=== PATIENT | female | born 1930 | race Caucasian/White ===

== ENCOUNTER 2016-06-13 20:30 | Inpatient (IN) | payer MEDICARE ==
[~2016-06-13] VITALS: Ht 165.1 cm; Wt 51.8 kg
[~2016-06-13 20:30] MED LIST: AMIO200T2 PO; ASPI-664 PO; CARV12.579 PO; FURO-110 PO; LACT1TAB10 PO; LEVE-5 PO; LEVO200T45 PO; MELA3TAB17 PO; OMEP20CA16 PO; PHEN125O2 PO; RALO60TA12 PO; [UNRECOGNIZED DRUG - CODE] IM
[2016-06-13] MEDS ORDERED: LEVETIRACETAM IV 1,000 MG in SOD CHLORIDE 0.9% 100 ML IVPB STA (22:43)
[2016-06-13] MEDS ORDERED: SOD CHLORIDE 0.9% 1,000 ML IV STA (22:43)
[2016-06-13 23:19] LABS: BASOPHIL # 0.1 10^3/ul (0.0-0.1); BASOPHILS % 1.3 % (0.0-2.0); EOSINOPHILS # 0.2 10^3/ul (0.0-0.5); EOSINOPHILS % 2.4 % (0.0-7.0); HEMATOCRIT 38.2 % (37.0-47.0); HEMOGLOBIN 12.6 g/dl (12.0-16.0); LYMPHOCYTES # 2.4 10^3/ul (0.8-2.9); LYMPHOCYTES % 27.4 % (15.0-51.0); MEAN CORPUSCULAR HEMOGLOBIN 29.8 pg (29.0-33.0); MEAN CORPUSCULAR HGB CONC 32.9 g/dl (32.0-37.0); MEAN CORPUSCULAR VOLUME 90.7 fl (82.0-101.0); MEAN PLATELET VOLUME 10.7 fl (7.4-10.4); MONOCYTE # 0.6 10^3/ul (0.3-0.9); MONOCYTES % 6.5 % (0.0-11.0); NEUTROPHIL # 5.4 10^3/ul (1.6-7.5); NEUTROPHILS % 62.4 % (39.0-77.0); PLATELET COUNT 220 10^3/UL (140-440); RED BLOOD COUNT 4.21 10^6/ul (4.20-5.40); RED CELL DISTRIBUTION WIDTH 15.4 % (11.5-14.5); UNCORRECTED WBC 8.7 10^3/ul (4.8-10.8); WHITE BLOOD COUNT 8.7 10^3/ul (4.8-10.8)
[2016-06-13 23:24] LABS: CONDITION 1; LH ANALYZER COMMENTS 1
[2016-06-13 23:27] LABS: CREATININE 1.2 mg/dl (0.44-1.00); INR 1.21; PROTIME 15.4 Sec (12.2-14.2); PT RATIO 1.2
[2016-06-13 23:28] LABS: CALCIUM 9.1 mg/dl (8.4-10.2)
[2016-06-13 23:34] LABS: POTASSIUM 5.5 mmol/L (3.5-5.1)
--- NOTE | 2016-06-14 00:06 | RADRPT ---
PROCEDURE: CT Head without. CLINICAL INDICATION: Seizure. TECHNIQUE: The study was performed utilizing a multi-slice, multidetector CT scanner. Direct spira l 1 mm axial sections were obtained through the head without the use of intravenous contrast materia l. 1 or more of the following dose reduction techniques were utilized: Automated exposure control, adjustment of the mA and/or kV according to patient's size, iterative reconstruction technique. Co tereza and sagittal reformations were obtained. The images were reviewed on a PACS workstation. RADIATION DOSE: CTDIvol: 45.0 mGyDLP: 1440.5 mGy-cm COMPARISON: 03/05/2014, 09/21/2013, 04/25/2013 FINDINGS: There is redemonstration of postoperative changes from right parietal / occipital craniotomy with pl ate and screw device fixation. There is redemonstration of large left parasagittal meningioma along the falx, measuring 4.0 x 3.4 x 4.1 cm (AP x TR x CC), stable compared to the prior examination. T here is stable appearance of encephalomalacia involving the paramedian right parietal / occipital lo bes, likely related to mass effect from the large meningioma status post resection. This is stable compared to the prior examination. There is mild prominence of the cerebral sulci, lateral and thir d ventricles. There is moderate patchy and confluent periventricular and subcortical white matter l esions, likely related to chronic microangiopathic changes. There is mild atherosclerotic calcifica tion of the parasellar internal carotid arteries. The midline structures are intact. 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 The orbits and extracranial soft tissues are normal in appearance. The visualized paranasal sinuses, mastoid air cells and middle ear cavities are normally aerated. IMPRESSION: 1. No significant interval change compared to 03/05/2014. Redemonstration of prominent parasagittal meningioma overlying the left parietal and occipital lobe. 2. Redemonstration of postoperative changes from right parietal / occipital craniotomy with plate a nd screw device fixation. There has been debulking of the parasagittal right aspect of the meningio ma, with encephalomalacia involving the paramedian right parietal and occipital lobe and stable vaso genic edema in the white matter. The mass is stable in size compared to the prior examination. 3. No intracranial hemorrhage, extra-axial fluid collection, mass lesion or hydrocephalous. RPTAT: HGAS .Ayden Yoder MD, Date Time Electronically viewed and signed by .Ayden Yoder MD, on 06/14/2016 00:05 .S/
[2016-06-14] MEDS ORDERED: ONDANSETRON 4 MG INJ IV PRN (01:00)
[2016-06-14] MEDS ORDERED: ACETAMINOPHEN 325 MG TAB PO PRN (01:00)
[2016-06-14] MEDS ORDERED: NA POLYST SULFON 15 GM/60 ML BTL PO ONE (01:00)
--- NOTE | 2016-06-14 01:38 | ERA ---
ER Documentation Chief Complaint Date/Time DATE: 06/14/16 TIME: 01:29 Chief Complaint seizure episode since 1 hour ago. hx-seizure HPI This 86-year-old female was sent to the ER for breakthrough seizures on medication. I spoke with Dr. Rojas and prior to the patient coming to the emergency room about her. He stated that she has meningioma and was controlled on her seizure medicine but now has began having increasing seizures and had a seizure earlier tonight as well. States that it was generalized tonic -clonic. Patient is taking Keppra and Dilantin for seizures currently. Patient was somewhat postictal or somnolent on arrival, though she was alert and oriented 3. She states that she has been having increasing seizures denies any headache currently. States that she was feeling okay. She has no focal weaknesses. ROS All systems reviewed and are negative except as per history of present illness. Medications Home Meds Reported Medications Lactobacillus Cmb#7/Fos/Inulin (PROBIOTIC COMPLEX TABLET) 1 Each Tablet, 1 EACH PO DAILY, TAB 04/11/16 Cyanocobalamin* (Vitamin B12*) 1,000 Mcg/Ml Soln, 1000 MCG IM DAILY, VIAL 04/11/16 Melatonin (Melatonin) 3 Mg Tablet.sa, 3 MG PO HS, TAB.SA 04/11/16 Aspirin* (Aspirin* EC) 81 Mg Tablet.dr, 81 MG PO DAILY, TAB 04/11/16 Carvedilol* (Carvedilol*) 12.5 Mg Tablet, 6.5 MG PO BID, #60 TAB 04/11/16 Levetiracetam* (Keppra*) 500 Mg Tablet, 1000 MG PO BID, TAB 01/16/16 Phenytoin* (Phenytoin*) 125 Mg/5 Ml Oral.susp, 75 MG PO TID for 30 Days, BOTTLE 01/16/16 Omeprazole* (Omeprazole*) 20 Mg Capsule.dr, 20 MG PO BID, #60 CAP 01/16/16 Levothyroxine Sodium* (Levoxyl*) 200 Mcg Tablet, 200 MCG PO BEFORE BREAKFAST, # 30 TAB 01/16/16 Amiodarone Hcl* (Amiodarone Hcl*) 200 Mg Tablet, 200 MG PO BID, #60 TAB 05/10/15 Raloxifene Hcl* (Evista*) 60 Mg Tablet, 60 MG PO DAILY, TAB 05/10/15 Furosemide* (Lasix*) 20 Mg Tablet, 20 MG PO DAILY, TAB 03/05/14 Allergies Allergies: Coded Allergies: No Known Drug Allergies (Verified Allergy, Mild, 06/13/16) PMhx/Soc History of Surgery: Yes (see notes) Anesthesia Reaction: No Hx Neurological Disorder: Yes (SEIZURE DISORDER) Hx Respiratory Disorders: Yes (COPD) Hx Cardiac Disorders: Yes (CAD,HTN, PT HAS AICD) Hx Psychiatric Problems: No Hx Miscellaneous Medical Probl: No Hx Alcohol Use: No Hx Substance Use: No Hx Tobacco Use: No Smoking Status: Never smoker Physical Exam Vitals Vital Signs Date Time Temp Pulse Resp B/P Pulse Ox O2 Delivery O2 Flow Rate FiO2 06/13/16 20:33 97.3 90 20 135/63 96 Physical Exam Const: [] Head: Atraumatic Eyes: Normal Conjunctiva ENT: Normal External Ears, Nose and Mouth. Neck: Full range of motion..~ No meningismus. Resp: Clear to auscultation bilaterally Cardio: Regular rate and rhythm, no murmurs Abd: Soft, non tender, non distended. Normal bowel sounds Skin: No petechiae or rashes Back: No midline or flank tenderness Ext: No cyanosis, or edema Neur: Awake and alert Psych: Normal Mood and Affect Result Diagram: 06/13/161 06/13/162300 Results 24 hrs Laboratory Tests Test 06/13/16 23:01 06/13/16 23:38 Activated Partial Thromboplast Time 41.0Sec Anion Gap 18 Basophils # 0.110^3/ul Basophils % 1.3% Blood Morphology Comment Blood Urea Nitrogen 27mg/dl Calcium Level 9.1mg/dl Carbon Dioxide Level 27mmol/L Chloride Level 101mmol/L Creatinine 1.20mg/dl Eosinophils # 0.210^3/ul Eosinophils % 2.4% Glucose Level 96mg/dl Hematocrit 38.2% Hemoglobin 12.6g/dl INR International Normalized Ratio 1.21 Lymphocytes # 2.410^3/ul Lymphocytes % 27.4% Mean Corpuscular Hemoglobin 29.8pg Mean Corpuscular Hemoglobin Concent 32.9g/dl Mean Corpuscular Volume 90.7fl Mean Platelet Volume 10.7fl Monocytes # 0.610^3/ul Monocytes % 6.5% Neutrophils # 5.410^3/ul Neutrophils % 62.4% Nucleated Red Blood Cells # 0.010^3/ul Nucleated Red Blood Cells % 0.0/100WBC Phenytoin (Dilantin) Level 12.5ug/ml Platelet Count 74558^3/UL Potassium Level 5.5mmol/L Prothrombin Time 15.4Sec Prothrombin Time Ratio 1.2 Red Blood Count 4.2110^6/ul Red Cell Distribution Width 15.4% Sodium Level 140mmol/L White Blood Count 8.710^3/ul Bedside Glucose 90mg/dL Current Medications Medications (Trade) Dose Ordered Sig/Maryan Route PRN Reason Start Time Stop Time Status Last Admin Dose Admin Sodium Chloride 1,000 ml @ 1,000 mls/hr Q1H STAT IV 06/13/16 22:43 06/13/16 23:42 DC 06/13/16 23:22 Levetiracetam/ Sodium Chloride (Keppra Iv/NS) 110 ml @ 400 mls/hr ONCE STAT IVPB 06/13/16 22:43 06/13/16 22:59 DC 06/13/16 23:22 Ondansetron HCl (Zofran Inj) 4 mg BRIDGE ORDER PRN IV NAUSEA AND/OR VOMITING 06/14/16 01:00 06/15/16 00:59 Acetaminophen (Tylenol Tab) 650 mg ER BRIDGE PRN PO MILD PAIN/FEVER 06/14/16 01:00 06/15/16 00:59 Sodium Polystyrene Sulfonate (Kayexalate) 30 gm ONCE ONCE PO 06/14/16 01:00 06/14/16 01:01 DC Procedures/MDM Patient with intracranial tumor with increasing seizure frequency on medications that had previously worked for. She is being admitted for neurological workup. Does have hyperkalemia as well was given Kayexalate in the emergency room. He also given IV fluid. Repeat exam patient was completely asymptomatic. She was loaded with a gram of Keppra. Dilantin level is currently therapeutic. Vital signs remained stable on the monitor. She is being admitted to Dr. Rojas. Departure Diagnosis: Primary Impression: Breakthrough seizure Additional Impressions: Renal insufficiency Hyperkalemia Condition: Serious ANGELY CRUZ Jun 14, 2016 01:38
[2016-06-14 16:00] VITALS: TEMP 98
[2016-06-14 19:50] VITALS: PULSE 74
[2016-06-14 20:45] VITALS: BP 144/77; RESP 17
--- NOTE | 2016-06-14 21:02 | HP ---
DATE OF ADMISSION: 06/13/2016 CHIEF COMPLAINT AND HISTORY OF PRESENT ILLNESS: The patient is an 86-year-old lady well known to me from previous followup, presenting to the emergency room with breakthrough seizures. The patient h as been doing fairly well with prior history of meningioma. Well controlled on combination of Keppr a and Dilantin. However, on the afternoon of June 13 patient began having seizures repeatedly a nd then also got confused and patient was evaluated in the emergency room and was admitted. MEDICATIONS: Include: 1. Aspirin. 2. Carvedilol. 3. Keppra. 4. Phenantoin. 5. Levothyroxine. 6. Amiodarone. 7. Raloxifene 6. Furosemide. REVIEW OF SYSTEMS: HEAD: History of seizures, status post prior history of meningioma resection. No history of recent head trauma. EYES: History of being legally blind. ENT: Severe hearing loss bilaterally. NECK: History of hypothyroidism. CHEST: Long history of smoking a pack a day for 40+ years, history of chronic obstructive pulmonary disease. HEART: History of coronary artery disease, status post PCI stenting and LAD stent in 2012, status p ost anterior wall myocardial infarction with CHF, history of V-Tach, status post defibrillator place ment. GASTROINTESTINAL: No constipation, diarrhea, change in bowel habits. GENITOURINARY: Note history of recurrent urinary tract infections including ESBL E. coli. PRIOR SURGERIES: Also include surgery for meningioma surgery, status post craniotomy, status post r ight fem-pop bypass and PCI stenting. PHYSICAL EXAMINATION: GENERAL: The patient is an average-built female who is presently awake, alert, in no acute distress . VITAL SIGNS: Blood pressure 120/80, afebrile. HEENT: Head normocephalic. No pallor, cyanosis, or icterus. Tongue is moist. NECK: Supple. No thyromegaly, bruits or lymphadenopathy. LUNGS: Clinically clear. HEART: S1, S2 heard with no definite gallops. ABDOMEN: Soft, nontender, no hepatosplenomegaly. EXTREMITIES: Moderate wasting of lower extremities, pedals poorly palpable. Homans sign is negativ e. NEUROLOGIC: The patient moves both upper and lower extremities well. LABORATORY DATA: WBC count 8.7, hematocrit 38.2, platelet count 220,000. Potassium 5.5, BUN 27, cr eatinine 1.2, Dilantin level was 12.5. IMPRESSION: 1. Breakthrough seizures. History of meningioma status post resection. 2. Chronic obstructive pulmonary disease. 3. Coronary artery disease. 4. Peripheral arterial disease. 5. Hypothyroidism. PLAN: The patient will be admitted to the medical floor. Closely monitor the Dilantin levels. Obs erve for seizures and optimize medications. Also, obtain a urine culture as she has been prone to u rinary tract infection and closely follow condition. Dictated By: SHERRI ROSS MD SR/NTS Conf#: [id number] DID#: [id number]
[2016-06-14 21:03] VITALS: Ht 165.1 cm; Wt 51.8 kg
[2016-06-14] MEDS: AMIODARONE 200 MG TAB PO SCH (22:14)
[2016-06-14] MEDS: LEVETIRACETAM 500 MG TAB PO SCH (22:17)
[2016-06-14] MEDS: PHENYTOIN (100 MG/4 ML) CUP PO SCH (22:18)
[2016-06-14] MEDS ORDERED: PANTOPRAZOLE (EC) 40 MG TAB PO ONE (22:30)
[2016-06-15 05:34] LABS: POTASSIUM 4.6 mmol/L (3.5-5.1)
[2016-06-15 05:37] LABS: CALCIUM 8.9 mg/dl (8.4-10.2); CREATININE 0.92 mg/dl (0.44-1.00); MAGNESIUM 2.1 mg/dl (1.7-2.5)
[2016-06-15 05:43] LABS: BASOPHIL # 0.1 10^3/ul (0.0-0.1); EOSINOPHILS # 0.2 10^3/ul (0.0-0.5); EOSINOPHILS % 2.5 % (0.0-7.0); HEMATOCRIT 33.8 % (37.0-47.0); HEMOGLOBIN 11.2 g/dl (12.0-16.0); LYMPHOCYTES # 2.1 10^3/ul (0.8-2.9); LYMPHOCYTES % 30.7 % (15.0-51.0); MEAN CORPUSCULAR HEMOGLOBIN 30.1 pg (29.0-33.0); MEAN CORPUSCULAR HGB CONC 33.2 g/dl (32.0-37.0); MEAN CORPUSCULAR VOLUME 90.7 fl (82.0-101.0); MEAN PLATELET VOLUME 10.4 fl (7.4-10.4); MONOCYTE # 0.6 10^3/ul (0.3-0.9); NEUTROPHIL # 3.8 10^3/ul (1.6-7.5); NEUTROPHILS % 56.8 % (39.0-77.0); PLATELET COUNT 163 10^3/UL (140-440); RED BLOOD COUNT 3.73 10^6/ul (4.20-5.40); RED CELL DISTRIBUTION WIDTH 15.5 % (11.5-14.5); UNCORRECTED WBC 6.7 10^3/ul (4.8-10.8); WHITE BLOOD COUNT 6.7 10^3/ul (4.8-10.8)
[2016-06-15 05:48] LABS: CONDITION 1; LH ANALYZER COMMENTS 1
[2016-06-15] MEDS: LEVOTHYROXINE 100 MCG TAB PO SCH (06:28)
[2016-06-15 08:05] VITALS: BP 147/77; RESP 18
[2016-06-15] MEDS: RALOXIFENE 60 MG TAB PO SCH ×2 (09:00→12:05)
[2016-06-15] MEDS ORDERED: PHENYTOIN 100 MG CAP PO ONE (09:00)
[2016-06-15] MEDS: AMIODARONE 200 MG TAB PO SCH ×2 (09:23→21:20)
[2016-06-15] MEDS: PHENYTOIN (100 MG/4 ML) CUP PO SCH ×3 (09:23→21:20)
[2016-06-15] MEDS: LEVETIRACETAM 500 MG TAB PO SCH ×2 (09:23→21:21)
[2016-06-15] MEDS: ASPIRIN (EC) 81 MG TAB PO SCH (09:24)
[2016-06-15] MEDS: CYANOCOBALAMIN 1000 MCG INJ IM SCH (09:24)
[2016-06-15] MEDS: FUROSEMIDE 20 MG TAB PO SCH (09:24)
--- NOTE | 2016-06-15 10:01 | PN ---
DATE: SUBJECTIVE: The patient has had no seizures. No focal weakness or numbness. PHYSICAL EXAMINATION: VITAL SIGNS: Temperature 97.7, blood pressure 147/77. CHEST: Decreased breath sounds at bases. HEART: S1, S2 heard with no definite gallops. EXTREMITIES: No edema. LABORATORY DATA: WBC count 6.7, hematocrit 33.8. Admission hematocrit of 38.2. Dilantin level was 7.1. IMPRESSION: 1. Subtherapeutic Dilantin level. 2. Seizure disorder. 3. Status post meningioma resection. 4. Coronary artery disease. 5. Peripheral arterial disease. 6. Hypothyroidism. 7. Recurrent urinary tract infection. PLAN: Urine cultures were ordered last night, could not be obtained last night. We will obtain thr ough straight catheterization, give a loading dose of Dilantin, repeat Dilantin level in a.m. and if stable, we will discharge in the next 24 hours. Dictated By: SHERRI ROSS MD, SR/LAYNE Conf#: [id number] DID#: [id number]
[2016-06-15 21:16] VITALS: BP 163/82; RESP 20
[2016-06-15 22:51] VITALS: BP 154/74
[2016-06-16] MEDS: LEVOTHYROXINE 100 MCG TAB PO SCH (06:20)
[2016-06-16 06:40] LABS: BASOPHILS % 0.6 % (0.0-2.0); EOSINOPHILS # 0.1 10^3/ul (0.0-0.5); EOSINOPHILS % 2.3 % (0.0-7.0); HEMATOCRIT 34.2 % (37.0-47.0); HEMOGLOBIN 11.4 g/dl (12.0-16.0); LYMPHOCYTES # 1.9 10^3/ul (0.8-2.9); MEAN CORPUSCULAR HEMOGLOBIN 30.3 pg (29.0-33.0); MEAN CORPUSCULAR HGB CONC 33.5 g/dl (32.0-37.0); MEAN CORPUSCULAR VOLUME 90.5 fl (82.0-101.0); MONOCYTE # 0.7 10^3/ul (0.3-0.9); NEUTROPHIL # 3.2 10^3/ul (1.6-7.5); NEUTROPHILS % 54.1 % (39.0-77.0); PLATELET COUNT 160 10^3/UL (140-440); RED BLOOD COUNT 3.77 10^6/ul (4.20-5.40); RED CELL DISTRIBUTION WIDTH 15.3 % (11.5-14.5); UNCORRECTED WBC 5.9 10^3/ul (4.8-10.8); WHITE BLOOD COUNT 5.9 10^3/ul (4.8-10.8)
[2016-06-16 06:46] LABS: CONDITION 1; LH ANALYZER COMMENTS 1
[2016-06-16 06:59] LABS: CREATININE 0.97 mg/dl (0.44-1.00)
[2016-06-16 07:00] LABS: CALCIUM 8.7 mg/dl (8.4-10.2)
[2016-06-16 07:29] LABS: THYROID STIMULATING HORMONE 1.98 MIU/L (0.465-4.680)
[2016-06-16 08:14] VITALS: BP 146/72; RESP 18
[2016-06-16] MEDS: LEVETIRACETAM 500 MG TAB PO SCH ×2 (08:46→20:23)
[2016-06-16] MEDS: FUROSEMIDE 20 MG TAB PO SCH (08:48)
[2016-06-16] MEDS: ASPIRIN (EC) 81 MG TAB PO SCH (08:48)
[2016-06-16] MEDS: RALOXIFENE 60 MG TAB PO SCH (08:48)
[2016-06-16] MEDS: AMIODARONE 200 MG TAB PO SCH ×2 (08:48→20:23)
[2016-06-16] MEDS: CYANOCOBALAMIN 1000 MCG INJ IM SCH (08:49)
[2016-06-16] MEDS: PHENYTOIN (100 MG/4 ML) CUP PO SCH ×3 (08:49→20:23)
[2016-06-16] MEDS ORDERED: PHENYTOIN 100 MG CAP PO ONE (16:30)
[2016-06-16] MEDS: CEFTRIAXONE 1 GM/50 ML (PMX) 50 ML IVPB SCH (17:28)
--- NOTE | 2016-06-16 17:52 | PN ---
DATE: 06/16/2016 SUBJECTIVE: The patient has occasional cough. No seizures. Denies any dysuria. PHYSICAL EXAMINATION GENERAL: The patient is awake, alert. VITAL SIGNS: Temperature 97.7, blood pressure 146/72. CHEST: Clinically clear. HEART: S1, S2 with no definite gallops. Negative CVA tenderness. ABDOMEN: Soft, nontender. LABORATORY DATA: Repeat Dilantin level 11.0. Urine cultures are gram-negative rods more than 100,0 00. IMPRESSION: 1. Seizure disorder, better controlled, still borderline Dilantin levels. 2. Recurrent urinary tract infection, concerned about the possibility of Escherichia coli extended- spectrum beta-lactamase. 3. Status post meningioma resection. 4. Chronic obstructive pulmonary disease. 5. Peripheral vascular disease. 6. Hypothyroidism. 7. Coronary artery disease. PLAN: Will start the patient on Rocephin 1 gram q.24h. We will await further cultures. If it turn s out to be ESBL, we will obtain ID consultation with Dr. Baltazar. We will also give another loading d ose of Dilantin 300 mg and recheck a Dilantin level in the a.m. Dictated By: SHERRI ROSS MD SR/NTS Conf#: [id number] DID#: [id number]
[2016-06-16 21:00] VITALS: BP 153/73; RESP 20
[2016-06-17] MEDS: LEVOTHYROXINE 100 MCG TAB PO SCH (06:02)
[2016-06-17 06:53] LABS: POTASSIUM 3.9 mmol/L (3.5-5.1)
[2016-06-17 06:56] LABS: CALCIUM 8.5 mg/dl (8.4-10.2)
[2016-06-17 07:10] LABS: BASOPHILS % 0.6 % (0.0-2.0); EOSINOPHILS # 0.2 10^3/ul (0.0-0.5); EOSINOPHILS % 3.3 % (0.0-7.0); HEMATOCRIT 33.9 % (37.0-47.0); HEMOGLOBIN 11.3 g/dl (12.0-16.0); LYMPHOCYTES # 1.1 10^3/ul (0.8-2.9); LYMPHOCYTES % 18.2 % (15.0-51.0); MEAN CORPUSCULAR HEMOGLOBIN 30.3 pg (29.0-33.0); MEAN CORPUSCULAR HGB CONC 33.3 g/dl (32.0-37.0); MEAN CORPUSCULAR VOLUME 90.8 fl (82.0-101.0); MEAN PLATELET VOLUME 9.6 fl (7.4-10.4); MONOCYTE # 0.5 10^3/ul (0.3-0.9); MONOCYTES % 8.6 % (0.0-11.0); NEUTROPHIL # 4.4 10^3/ul (1.6-7.5); NEUTROPHILS % 69.3 % (39.0-77.0); PLATELET COUNT 139 10^3/UL (140-440); RED BLOOD COUNT 3.73 10^6/ul (4.20-5.40); RED CELL DISTRIBUTION WIDTH 15.6 % (11.5-14.5); UNCORRECTED WBC 6.3 10^3/ul (4.8-10.8); WHITE BLOOD COUNT 6.3 10^3/ul (4.8-10.8)
[2016-06-17 07:34] LABS: CONDITION 1; LH ANALYZER COMMENTS 1
[2016-06-17 08:31] VITALS: BP 121/64; RESP 16
[2016-06-17] MEDS: RALOXIFENE 60 MG TAB PO SCH (09:28)
[2016-06-17] MEDS: LEVETIRACETAM 500 MG TAB PO SCH ×2 (09:29→20:54)
[2016-06-17] MEDS: CYANOCOBALAMIN 1000 MCG INJ IM SCH (09:29)
[2016-06-17] MEDS: ASPIRIN (EC) 81 MG TAB PO SCH (09:29)
[2016-06-17] MEDS: PHENYTOIN (100 MG/4 ML) CUP PO SCH ×3 (09:29→20:54)
[2016-06-17] MEDS: AMIODARONE 200 MG TAB PO SCH ×2 (09:30→20:55)
[2016-06-17] MEDS: FUROSEMIDE 20 MG TAB PO SCH (09:31)
[2016-06-17] MEDS: CEFTRIAXONE 1 GM/50 ML (PMX) 50 ML IVPB SCH (16:18)
--- NOTE | 2016-06-17 17:22 | PN ---
DATE: 06/17/2016 SUBJECTIVE: The patient overall feels better. OBJECTIVE: VITAL SIGNS: Afebrile, blood pressure 121/64, O2 sats 94% on room air. CHEST: Clinically clear. HEART: S1, S2 heard with no definite gallops. ABDOMEN: Negative CVA tenderness. EXTREMITIES: No edema. URINE CULTURES: 1. Klebsiella more than 100,000 colony count. 2. Gram-negative rods more than 100,000. IMPRESSION: 1. Seizure disorder, better controlled. Dilantin level 16.6, which is in the range. 2. Recurrent urinary tract infection, Klebsiella and second organism not . 3. Status post meningioma resection. 4. Chronic obstructive pulmonary disease. 5. Peripheral vascular disease. 6. Hypothyroidism. 7. Coronary artery disease. We will continue Rocephin for now. Await culture and sensitivity of the second organism. Will obse rve for 24 hours, as she has had prior history of ESBL Escherichia coli infection and decide on appr opriate antibiotic coverage. Dictated By: SHERRI ROSS MD, SR/NTS Conf#: [id number] DID#: [id number]
[2016-06-17 20:30] VITALS: BP 117/58; RESP 20
[2016-06-18] MEDS: LEVOTHYROXINE 100 MCG TAB PO SCH (06:05)
[2016-06-18 07:52] VITALS: BP 124/56; RESP 18
[2016-06-18] MEDS: RALOXIFENE 60 MG TAB PO SCH (08:36)
[2016-06-18] MEDS: ASPIRIN (EC) 81 MG TAB PO SCH (08:36)
[2016-06-18] MEDS: LEVETIRACETAM 500 MG TAB PO SCH (08:36)
[2016-06-18] MEDS: PHENYTOIN (100 MG/4 ML) CUP PO SCH ×2 (08:37→12:10)
[2016-06-18] MEDS: AMIODARONE 200 MG TAB PO SCH (08:37)
--- NOTE | 2016-06-18 08:37 | CONS ---
Date/Time of Note Date/Time of Note DATE: 06/18/16 TIME: 08:31 Assessment/Plan Assessment/Plan Chief Complaint/Hosp Course 1) breakthru seizures, now controlled 2) bacteriuria pt is asymptomatic, no fevers, normal wbc this likely represents colonization and does not need treatment will check u/a can d/c ceftriaxone 3) COPD 4) CAD with pacer 5) hx of CVA and meningioma Problems: Consultation Date/Type/Reason Admit Date/Time Jun 14, 2016 at 00:48 Date of Consultation: Jun 18, 2016 Type of Consultation: ID Hx of Present Illness pt was admitted due to breatthru seizures She has had no fevers, chills She denies pain with urination no SOB, V, D she is eating ok Past Medical History PVD, COPD, hypothryroid, CAD, ND, CVA, menigioma Past Surgical History pacer, cardiac sten, fem-pop bypass Social History Smoking Status: Former smoker Exam/Review of Systems Vital Signs Vitals Vital Signs Date Time Temp Pulse Resp B/P Pulse Ox O2 Delivery O2 Flow Rate FiO2 06/17/16 20:30 97.7 90 20 117/58 93 06/15/16 08:00 Nasal Cannula 2.0 Intake and Output 06/17/16 06/17/16 06/18/16 15:00 23:00 07:00 Intake Total 610 ml 120 ml Balance 610 ml 120 ml Exam Constitutional: alert Psych: no complaints Eyes: nl conjunctiva ENMT: mucosa pink and moist Respiratory: clear to auscultation Cardiovascular: regular rate and rhythm Gastrointestinal: non-tender, soft Extremities: other (no edema) Results Result Diagram: 06/17/16 0555 06/17/16 0555 Medications Medications Current Medications Amiodarone HCl (Cordarone) 200 mg BID PO Last administered on 06/17/16 20:55; Admin Dose 200 MG; Start 06/14/16 at 22:30 Aspirin (Halfprin) 81 mg DAILY PO Last administered on 06/17/16 09:29; Admin Dose 81 MG; Start 06/15/16 at 09:00 Carvedilol (Coreg) 6.25 mg BID PO Last administered on 06/17/16 20:54; Admin Dose 6.25 MG; Start 06/14/16 at 21:00 Cyanocobalamin (Vitamin B12 Inj) 1,000 mcg DAILY IM Last administered on 09:29; Admin Dose 1,000 MCG; Start 06/15/16 at 09:00 Furosemide (Lasix) 20 mg DAILY PO Last administered on 06/17/16 09:31; Admin Dose 20 MG; Start 06/15/16 at 09:00 Levetiracetam (Keppra) 1,000 mg BID PO Last administered on 06/17/16 20:54; Admin Dose 1,000 MG; Start 06/14/16 at 22:30 Phenytoin (Dilantin Susp Cup) 75 mg TID PO Last administered on 06/17/16 20:54 ; Admin Dose 75 MG; Start 06/14/16 at 22:30 Raloxifene HCl 60 mg 60 mg DAILY PO Last administered on 06/17/16 09:28; Admin Dose 60 MG; Start 06/15/16 at 09:00 Ceftriaxone Sodium (Rocephin) 50 ml @ 100 mls/hr Q24H IVPB Last administered on 06/17/16 16:18; Admin Dose 100 MLS/HR; Start 06/16/16 at 16:30 NANDA GARDNER MD Jun 18, 2016 08:37
[2016-06-18] MEDS: FUROSEMIDE 20 MG TAB PO SCH (08:38)
[2016-06-18] MEDS: CYANOCOBALAMIN 1000 MCG INJ IM SCH (08:39)
[2016-06-18 12:27] LABS: ADD UMIC YES; URINE BILIRUBIN (Dip) NEGATIVE (NEGATIVE); URINE BLOOD (Dip) TRACE (NEGATIVE); URINE COLOR YELLOW (YELLOW); URINE GLUCOSE (Dip) NEGATIVE (NEGATIVE); URINE KETONES (Dip) NEGATIVE (NEGATIVE); URINE LEUKOCYTE ESTERASE (Dip) 3+ (NEGATIVE); URINE NITRITE (Dip) NEGATIVE (NEGATIVE); URINE TOTAL PROTEIN (Dip) TRACE (NEGATIVE); URINE UROBILINOGEN (Dip) 0.2 E.U./dL (0.1-1.0)
[2016-06-18 13:06] LABS: BACTERIA,URINE MODERATE; SQUAMOUS EPITHELIAL CELL,UR MANY
--- NOTE | 2016-06-18 20:07 | DS ---
DATE OF ADMISSION: 06/14/2016 DATE OF DISCHARGE: 06/18/2016 FINAL DIAGNOSES: 1. Breakthrough seizures, status post meningioma resection. 2. Chronic obstructive pulmonary disease. 3. Urinary tract infection with klebsiella and proteus. 4. Coronary artery disease. 5. Peripheral arterial disease. 6. Hypothyroidism. HOSPITAL COURSE: The patient is an 86-year-old lady well known to me from previous followup, presen ting to emergency room with breakthrough seizures, and the patient has been doing fairly well with p rior history of meningioma resection. The patient was admitted to medical floor but in no acute dis tress. Dilantin levels were 12.5. The patient also was found to be dehydrated with a BUN of 27, cr eatinine 1.2, potassium 5.5 which was treated with intravenous hydration, and she was begun on cours e of Rocephin. Urine cultures grew klebsiella and also proteus, and ID consultation was obtained, Edith Baltazar, who recommended getting a UA and felt that patient could be discharged after discontinuing ceftriaxone. The discharge medications are to continue the same medications as before and will closely follow the patient as outpatient. Dictated By: SHERRI ROSS MD SR/NTS Conf#: [id number] DID#: [id number]
== END 2016-06-18 12:54 | disposition home or self-care (01) | DRG 101 ==
LOC: E/R 20:30 → PP2 06-14 00:48
PROVIDERS: ADMIT Internal Medicine; ATTEND Internal Medicine
DX: G40.909 Epilepsy, unspecified, not intractable, without status epilepticus (principal); N39.0 Urinary tract infection, site not specified; E87.5 Hyperkalemia; Z68.1 Body mass index [BMI] 19.9 or less, adult; I25.10 Atherosclerotic heart disease of native coronary artery without angina pectoris; E03.9 Hypothyroidism, unspecified; J44.9 Chronic obstructive pulmonary disease, unspecified; I70.201 Unspecified atherosclerosis of native arteries of extremities, right leg; B96.1 Klebsiella pneumoniae [K. pneumoniae] as the cause of diseases classified elsewhere; B96.4 Proteus (mirabilis) (morganii) as the cause of diseases classified elsewhere; Z16.35 Resistance to multiple antimicrobial drugs; Z79.82 Long term (current) use of aspirin; Z87.891 Personal history of nicotine dependence; Z95.810 Presence of automatic (implantable) cardiac defibrillator; Z95.5 Presence of coronary angioplasty implant and graft
CPT/HCPCS: 36415; 70450; 80048; 80185; 81001; 81003; 82962; 83735; 84443; 85025; 85610; 85730; 87081; 87086; 96374; J0696; J1953; J3420; J7030

== ENCOUNTER 2017-09-05 23:37 | Inpatient (IN) | END 2017-09-25 11:00 | disposition home or self-care (01) | DRG 542 ==

== ENCOUNTER 2018-04-05 16:15 | Inpatient (IN) | END 2018-04-15 12:37 | disposition home or self-care (01) | DRG 100 ==

== ENCOUNTER 2018-08-07 20:56 | Inpatient (IN) | payer BC ==
[~2018-08-07] VITALS: Ht 165.1 cm; Wt 45.3 kg
[~2018-08-07 20:56] MED LIST changes: -AMIO200T2 PO; +AMIO200T4 PO; -ASPI-664 PO; +ASPI-817 PO; +ATOR10TA65 PO; -CARV12.579 PO; +CARV6.2579 PO; +CYAN500T46 PO; -FURO-110 PO; +FURO20TA3 PO; +LACT1CAP47 PO; -LACT1TAB10 PO; -LEVO200T45 PO; +LEVO50TA7 PO; +LISI10TA2 PO; -PHEN125O2 PO; +PHEN125O3 PO; +TRAZ-111 PO; -[UNRECOGNIZED DRUG - CODE] IM
[2018-08-07] MEDS ORDERED: SOD CHLORIDE 0.9% 500 ML IV STA (21:19)
[2018-08-07] MEDS ORDERED: ONDANSETRON 4 MG INJ IV STA (21:19)
[2018-08-07] MEDS ORDERED: morphine 4 MG/ML VIAL IV STA (21:19)
[2018-08-07] MEDS ORDERED: NA BICARBONATE 8.4% 50 ML SYG IV STA (22:21)
[2018-08-07] MEDS ORDERED: CALCIUM GLUCONATE 10% 1 GM in DEXTROSE 5% 100 ML IVPB ONE (22:30)
[2018-08-07] MEDS ORDERED: ACETAMINOPHEN 325 MG TAB PO PRN (23:30)
[2018-08-07] MEDS ORDERED: ONDANSETRON 4 MG INJ IV PRN (23:30)
--- NOTE | 2018-08-07 23:47 | ERD ---
ER Documentation Chief Complaint Chief Complaint NON TRAUMATIC BRENNER FOR THE PAST 3 DAYS. NO NEURO CHANGES OR DEFICIT HPI 88-year-old female sent in by primary care physician. The patient has a known history of meningioma status post resection, right lung cancer responsive to chemotherapy who presents to the emergency room because of a headache. The patient has had at least 1 week of headache that is gradual onset, throbbing and bandlike. The patient has had some decreased responsiveness over this timeframe as well. Patient sent for further evaluation by primary care doctor, Dr. Ross. Patient cannot articulate headache. Remainder of HPI is limited. ROS All systems reviewed and are negative except as per history of present illness. Medications Home Meds Active Scripts Levothyroxine Sodium* (Levothyroxine Sodium*) 50 Mcg Tablet, 50 MCG PO DAILY@06 for 30 Days, #30 TAB Prov:SHERRI ROSS MD 04/15/18 Levetiracetam* (Keppra*) 500 Mg Tablet, 500 MG PO BID for 30 Days, #60 TAB Prov:SHERRI ROSS MD 04/15/18 Amiodarone Hcl* (Amiodarone Hcl*) 200 Mg Tablet, 200 MG PO BID for 30 Days, #60 TAB Prov:SHERRI ROSS MD 04/15/18 Reported Medications Lisinopril* (Lisinopril*) 10 Mg Tablet, 10 MG PO DAILY, #30 TAB 09/05/17 Atorvastatin Calcium (Atorvastatin Calcium) 10 Mg Tablet, 10 MG PO QHS, #30 TAB 09/05/17 Aspirin* (Aspirin* EC) 81 Mg Tablet.dr, 81 MG PO DAILY, TAB 09/05/17 Cyanocobalamin* (Vitamin B12*) 500 Mcg Tab, 1000 MCG PO DAILY, TAB 09/05/17 Lactobacillus Acidophilus (Probiotic) 1 Each Capsule, 1 CAP PO DAILY, CAP 09/05/17 Phenytoin* (Phenytoin*) 125 Mg/5 Ml Oral.susp, 3 ML PO TID for 30 Days, BOTTLE 09/05/17 Omeprazole* (Omeprazole*) 20 Mg Capsule.dr, 20 MG PO DAILY, #30 CAP 09/05/17 Trazodone Hcl* (Trazodone Hcl*) 50 Mg Tablet, 50 MG PO TID, #90 TAB 09/05/17 Raloxifene Hcl* (Evista*) 60 Mg Tablet, 60 MG PO DAILY, TAB 09/05/17 Carvedilol* (Carvedilol*) 6.25 Mg Tablet, 6.25 MG PO BID, #60 TAB 09/05/17 Melatonin (Melatonin) 3 Mg Tablet.sa, 3 MG PO HS, TAB.SA 09/05/17 Furosemide* (Furosemide*) 20 Mg Tablet, 20 MG PO DAILY, #60 TAB 09/05/17 Allergies Allergies: Coded Allergies: No Known Drug Allergies (Verified Allergy, Mild, 04/05/18) PMhx/Soc History of Surgery: Yes (MENINGIOMA,APPENDECTOMY, TUBAL LIGATIOM) Anesthesia Reaction: No Hx Neurological Disorder: Yes (SEIZURES,STROKE, brain tumor) Hx Respiratory Disorders: Yes (LUNG MASS) Hx Cardiac Disorders: Yes (PACEMAKER) Hx Psychiatric Problems: No Hx Miscellaneous Medical Probl: No Hx Alcohol Use: No Hx Substance Use: No Hx Tobacco Use: No Smoking Status: Never smoker FmHx Family History: No diabetes Physical Exam Vitals Vital Signs Date Temp Pulse Resp B/P (MAP) Pulse Ox O2 O2 Flow FiO2 Time Delivery Rate 08/07/18 98.0 42 18 118/57 92 21:02 (77) Physical Exam General: Cachectic elderly female Head: Normocephalic, atraumatic. Eyes: Pupils equally reactive, EOM intact ENT: Very dry mucous membranes Neck: Supple, no lymphadenopathy Respiratory: Lungs clear bilaterally, no distress Cardiovascular: RRR, no murmurs, rubs, or gallops Abdominal: Soft, non-tender, non-distended, no peritoneal signs : Deferred MSK: No edema, no unilateral swelling, 5/5 strength Neurologic: Limited exam but moving all extremities, no focal deficits Skin: No rash Psych: Normal mood Result Diagram: 08/07/18213008/07/182130 Results 24 hrs Laboratory Tests Test 08/07/18 21:31 White Blood Count 6.3 10^3/ul Red Blood Count 3.10 10^6/ul Hemoglobin 9.5 g/dl Hematocrit 30.0 % Mean Corpuscular Volume 96.8 fl Mean Corpuscular Hemoglobin 30.6 pg Mean Corpuscular Hemoglobin Concent 31.7 g/dl Red Cell Distribution Width 16.0 % Platelet Count 116 10^3/UL Mean Platelet Volume 12.0 fl Immature Granulocytes % 0.500 % Neutrophils % 54.9 % Lymphocytes % 31.2 % Monocytes % 9.4 % Eosinophils % 3.2 % Basophils % 0.8 % Nucleated Red Blood Cells % 0.0 /100WBC Immature Granulocytes # 0.030 10^3/ul Neutrophils # 3.4 10^3/ul Lymphocytes # 2.0 10^3/ul Monocytes # 0.6 10^3/ul Eosinophils # 0.2 10^3/ul Basophils # 0.1 10^3/ul Nucleated Red Blood Cells # 0.0 10^3/ul Prothrombin Time 15.9 Sec Prothrombin Time Ratio 1.2 INR International Normalized Ratio 1.26 Activated Partial Thromboplast Time 45.6 Sec Sodium Level 134 mmol/L Potassium Level 6.1 mmol/L Chloride Level 103 mmol/L Carbon Dioxide Level 21 mmol/L Anion Gap 10 Blood Urea Nitrogen 51 mg/dl Creatinine 2.01 mg/dl Est Glomerular Filtrat Rate mL/min mL/min Glucose Level 89 mg/dl Calcium Level 8.7 mg/dl Troponin I 0.013 ng/ml Current Medications Medications Dose Sig/Maryan Start Time Status Last (Trade) Ordered Route PRN Stop Time Admin Dose Reason Admin Sodium 500 ml @ Q1H STAT 08/07/18 DC 08/07/18 Chloride 500 mls/hr IV 21: 21:55 08/07/18 22:18 Ondansetron 4 mg ONCE STAT 08/07/18 DC 08/07/18 HCl (Zofran IV 21:19 21:55 Inj) 08/07/18 21:20 Morphine 2 mg ONCE STAT 08/07/18 DC 08/07/18 Sulfate IV 21:19 21:55 (morphine) 08/07/18 21:20 Calcium 110 ml @ ONCE ONCE 08/07/18 DC 08/07/18 Gluconate 1 110 mls/hr IVPB 22:30 22:52 gm/Dextrose 08/07/18 23:29 Sodium 50 ml ONCE STAT 08/07/18 DC 08/07/18 Bicarbonate IV 22:21 22:28 (Na Bicarb 08/07/18 22:22 8.4% Syg) Ondansetron 4 mg ER BRIDGE 08/07/18 HCl (Zofran PRN IV 23:30 Inj) NAUSEA/VOMITI 08/08/18 23:29 NG 650 mg ER BRIDGE 08/07/18 Acetaminophen PRN PO 23:30 (Tylenol .MILD PAIN 08/08/18 23:29 Tab) 1-3 OR TEMP Procedures/MDM EKG, MONITORS, & DIAGNOSTIC IMAGING: EKG: I reviewed and interpreted a 12-lead EKG. Rhythm: sinus bradycardia ST Changes: No contiguous ST segment elevations T waves: No contiguous T wave inversions Impression: [No evidence of acute cardiac ischemia] . CT brain: IMPRESSION: Posterior parasagittal calcified meningioma is unchanged. Stable overlying postsurgical changes. 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 No acute intracranial findings. Chronic microvascular ischemic disease . RPTAT:HCLE LAB INTERPRETATION: I reviewed the laboratory testing and it shows hyperkalemia of 6.1 with a creatinine of 2.01 MEDICAL DECISION MAKING: Patient presents with a headache, clinical evidence of dehydration with a known history of meningioma. Concern for possible intracranial mass or malignant extension. Consider dehydration given clinical appearance. No signs of infection or infarction at this time. ER COURSE: * Laboratory testing suggested diagnosis of dehydration with acute renal insufficiency and hyperkalemia. The patient has a sinus bradycardia, low concern for cardiac changes given no hyperacute T waves however calcium would be indicated. The patient was also given bicarbonate. Given her altered mental status she is not a good candidate for Kayexalate. Patient will likely respond to fluid resuscitation. * IV fluids provided. * Patient is hemodynamically stable and would benefit from hospitalization CONSULTATION: [None] DISPOSITION PLAN: Telemetry admission for management of dehydration and hyperkalemia Accepting care team and consultations: I discussed the current laboratory data, diagnostic imaging and emergency care provided. Admitting team: Dr. Ross Admitting team indication: Insurance directed Departure Diagnosis: Primary Impression: Altered level of consciousness Additional Impressions: Headache Headache type: unspecified Headache chronicity pattern: acute headache Intractability: not intractable Qualified Codes: R51 - Headache Acute renal insufficiency Hyperkalemia Sinus bradycardia Dehydration, severe Condition: Stable MAKAYLA REYES MD Aug 07, 2018 23:47
[2018-08-08] VITALS (13 sets, daily range): BP systolic 105–144; BP diastolic 48–62; PULSE 41–68; RESP 16–20; Ht 165.1 cm; Wt 45.3 kg
[2018-08-08] MEDS ORDERED: LEVO-86 PO (02:38)
[2018-08-08] MEDS ORDERED: ONDANSETRON 4 MG INJ IV PRN (06:30)
[2018-08-08] MEDS ORDERED: morphine 2 MG INJ IV PRN (06:30)
[2018-08-08] MEDS: LEVOTHYROXINE 100 MCG TAB PO SCH (08:30)
[2018-08-08] MEDS: LACTOBACILLUS RHAMNOSUS CAP PO SCH (08:30)
[2018-08-08] MEDS: ASPIRIN 81 MG TAB PO SCH (08:30)
[2018-08-08] MEDS: CYANOCOBALAMIN 500 MCG TAB PO SCH (08:31)
[2018-08-08] MEDS: RALOXIFENE 60 MG TAB PO SCH (09:57)
[2018-08-08] MEDS: PHENYTOIN (100 MG/4 ML) CUP PO SCH ×3 (09:57→20:46)
[2018-08-08] MEDS: DEXTROSE 5%-0.225% NACL 1,000 ML IV SCH (14:51)
[2018-08-08] MEDS ORDERED: NA POLYST SULFON 15 GM/60 ML BTL PO ONE (18:00)
--- NOTE | 2018-08-08 18:08 | HP ---
DATE OF ADMISSION: 08/07/2018 HISTORY OF PRESENT ILLNESS: The patient is an 88-year-old lady, well known to me from previous follo wup, status post prior meningioma resection, status post right lung cancer, responding well to chemot herapy, presenting with severe headache which became progressive for the last week and also have some decreased responsiveness. The patient was evaluated in the emergency room and was admitted. CURRENT MEDICATIONS: Include: 1. Lisinopril 10 mg daily. 2. Atorvastatin 10 mg daily. 3. Aspirin 81 mg daily. 4. Phenytoin 125 mg t.i.d. 5. Omeprazole 20 mg daily. 6. Trazodone 50 mg t.i.d. p.r.n. 7. Evista 60 mg daily. 8. Carvedilol 6.25 b.i.d. 9. Lasix 20 mg daily. ALLERGIES: NO KNOWN ALLERGIES. PRIOR SURGERIES: Also include meningioma resection, appendectomy, tubal ligation. REVIEW OF SYSTEMS: HEAD: No history of head trauma. Severe headache as above, status post meningioma resection. EYES: History of being legally blind. ENT: Severe hearing loss bilaterally. NECK: History of hypothyroidism. CHEST: Got COPD. Smoked a pack a day for 40 plus years. History of metastatic lung CA in remission . HEART: History of coronary artery disease, status post PCI and stenting in LAD in 2012, status post anterior wall myocardial infarction, CHF, history of V-Tach, status post placement of AICD. GASTROINTESTINAL: No constipation, diarrhea, change in bowel habits. GENITOURINARY: No dysuria, hematuria, kidney stones. NEUROLOGIC: The patient has been nonambulatory, lives in board and care. PHYSICAL EXAMINATION: GENERAL: The patient is an average-built female who is presently awake, alert, oriented x3. VITAL SIGNS: Temperature 97.8, blood pressure 105/54, O2 sats 92% on 3-liter nasal cannula. HEENT: Head is normocephalic. Mild pallor without cyanosis. Tongue is moist. NECK: Supple. No thyromegaly, bruits or lymphadenopathy. CHEST: Decreased breath sounds at bases. HEART: S1, S2 with no definite gallops. ABDOMEN: Soft, nontender. No hepatosplenomegaly. EXTREMITIES: No edema. Moderate wasting of both lower extremities. PELVIC AND RECTAL: Deferred at patient's request. LABORATORY DATA: Initial WBC count 6.3, hematocrit 30.2. Sodium 134, potassium 6.1, BUN 51, creatin ine 2.01. IMPRESSION: 1. Severe cephalgia. CT scan shows posterior parasagittal calcified meningioma, unchanged. No acut e intracranial findings. 2. Coronary artery disease, status post anterior myocardial infarction, prior history of ventricular tachycardia, status post AICD. At present, the patient is bradycardic. 3. Recent changes in mental status with encephalopathy probably related to urinary tract infection. 4. Severe hyperkalemia. 5. Dehydration with prerenal azotemia. 6. The patient is legally blind. 7. Chronic obstructive pulmonary disease. 8. Recent right lung cancer in remission, in chemotherapy with good response. 9. Hypothyroidism. PLAN: We will hold beta blockers for now. Obtain urine cultures . Repeat potassium levels. G entle hydration. Observe for signs of failure and treat. Empiric antibiotic therapy after urine cul ture is obtained. Dictated By: SHERRI ROSS MD, SR/LAYNE Conf#: [id number] DID#: [id number]
[2018-08-08] MEDS: ATORVASTATIN 10 MG TAB PO SCH (20:46)
[2018-08-09] VITALS (12 sets, daily range): BP systolic 108–159; BP diastolic 55–68; PULSE 50–71; RESP 18–21
[2018-08-09] MEDS: DEXTROSE 5%-0.225% NACL 1,000 ML IV SCH ×2 (04:49→17:40)
[2018-08-09] MEDS: LEVOTHYROXINE 100 MCG TAB PO SCH (06:09)
[2018-08-09] MEDS: CEFTRIAXONE 1 GM/50 ML (PMX) 50 ML IVPB SCH (09:41)
[2018-08-09] MEDS: NA POLYST SULFON 15 GM/60 ML BTL PO SCH ×2 (09:43→21:39)
[2018-08-09] MEDS: RALOXIFENE 60 MG TAB PO SCH (09:44)
[2018-08-09] MEDS: CYANOCOBALAMIN 500 MCG TAB PO SCH (09:44)
[2018-08-09] MEDS: LACTOBACILLUS RHAMNOSUS CAP PO SCH (09:44)
[2018-08-09] MEDS: PHENYTOIN (100 MG/4 ML) CUP PO SCH ×3 (09:44→21:38)
[2018-08-09] MEDS: ASPIRIN 81 MG TAB PO SCH (09:45)
[2018-08-09] MEDS: [UNRECOGNIZED DRUG - REMARK] XX SCH ×2 (10:00→18:00)
[2018-08-09] MEDS: ATORVASTATIN 10 MG TAB PO SCH (21:38)
--- NOTE | 2018-08-09 23:54 | PN ---
DATE: 08/09/2018 SUBJECTIVE: The patient is confused, not oriented to place or time. OBJECTIVE: VITAL SIGNS: Temperature 97.6, blood pressure 120/61, O2 saturation 93% on room air. LUNGS: Clinically clear. Decreased breath sounds at bases. HEART: S1, S2 with no definite gallops. ABDOMEN: Soft, nontender, no hepatosplenomegaly. EXTREMITIES: No edema. Urine culture growing gram-negative rods. LABORATORY DATA: WBC count 6.0, hematocrit 28.5, potassium 5.8, BUN 39, creatinine 1.72. IMPRESSION: 1. Cephalgia, resolved. 2. Hyperkalemia, improving slowly. 3. Dehydration with prerenal azotemia. 4. Encephalopathy related to urinary tract infection. 5. Chronic obstructive pulmonary disease. 6. Coronary artery disease, status post anterior myocardial infarction, prior history of ventricular tachycardia, status post automatic implantable cardioverter-defibrillator. PLAN: We will continue gentle IV hydration and monitor. The patient also has history of recent lung cancer in remission with chemotherapy. Dictated By: SHERRI ROSS MD, SR/LAYNE Conf#: [id number] DID#: [id number]
[2018-08-10] VITALS (78 sets, daily range): BP systolic 72–161; BP diastolic 49–147; PULSE 59–104; RESP 11–22
[2018-08-10] MEDS ORDERED: LORAZEPAM 2 MG INJ IV PRN (01:00)
[2018-08-10] MEDS: [UNRECOGNIZED DRUG - REMARK] XX SCH ×3 (02:00→17:24)
[2018-08-10] MEDS ORDERED: SOD CHLORIDE 0.9% 250 ML IV ONE ×2 (04:00→04:30)
[2018-08-10] MEDS ORDERED: NORepinephrine 8MG/250 ML (PMX 250 ML ONE (04:24)
[2018-08-10] MEDS ORDERED: NORepinephrine 8MG/250 ML (PMX 250 ML IV SCH (04:30)
[2018-08-10] MEDS: LEVOTHYROXINE 100 MCG TAB PO SCH (06:00)
--- NOTE | 2018-08-10 06:18 | EN ---
Date/Time of Note Date/Time of Note DATE: 08/10/18 TIME: 06:15 Event Note Medicine Medicine Event Note An TYING MACHINE OPERATOR was called hypotension. Systolic blood pressure as low as 60. When I arrived to the room, patient was in Trendelenburg position. She was awake, but on exam she became agitated. 250 cc NS bolus has already been started. Patient has been transferred to ICU. If blood pressure does not improve upon arrival, she will be started on pressors. MED HOBSON MD Aug 10, 2018 06:18
[2018-08-10] MEDS: SOD CHLORIDE 0.9% 1,000 ML IV SCH ×2 (06:37→16:16)
[2018-08-10] MEDS: DEXTROSE 5%-0.225% NACL 1,000 ML IV SCH (07:00)
[2018-08-10] MEDS: ASPIRIN 81 MG TAB PO SCH (08:19)
[2018-08-10] MEDS: CYANOCOBALAMIN 500 MCG TAB PO SCH (08:19)
[2018-08-10] MEDS: LACTOBACILLUS RHAMNOSUS CAP PO SCH (08:19)
[2018-08-10] MEDS: NA POLYST SULFON 15 GM/60 ML BTL PO SCH (09:00)
[2018-08-10] MEDS: CEFTRIAXONE 1 GM/50 ML (PMX) 50 ML IVPB SCH (09:17)
[2018-08-10] MEDS: PHENYTOIN (100 MG/4 ML) CUP PO SCH ×3 (11:04→20:50)
[2018-08-10] MEDS: traZODone 50 MG TAB PO SCH ×4 (11:05→21:14)
[2018-08-10] MEDS: RALOXIFENE 60 MG TAB PO SCH (11:05)
--- NOTE | 2018-08-10 17:53 | PN ---
DATE: 08/10/2018 SUBJECTIVE: The patient was transferred to the ICU after she became hypotensive last night. The pat ient denies any chest pains or shortness of breath. OBJECTIVE: GENERAL: The patient is awake, pleasantly conversant, somewhat confused. VITAL SIGNS: Temperature 98.0, blood pressure 127/65 on pressor support, O2 sats 99%. NECK: JVD is not increased. CHEST: Decreased breath sounds at bases. HEART: S1, S2 with no rubs of gallops. EXTREMITIES: No edema. LABORATORY DATA: Urinalysis shows 3+ leukocyte esterase, 24 RBCs, 182 WBCs. Urine culture shows gra m-negative rods. Sodium 139, potassium 4.4, BUN 30, creatinine 1.65. WBC count 7.4, hematocrit 29.7 , platelet count is 172,000. IMPRESSION: 1. Hypotension, probably a combination of hypovolemia and possible sepsis, ____. 2. Delirium secondary to #1. 3. Hyperkalemia, resolved. 4. Chronic obstructive pulmonary disease. 5. Coronary artery disease, status post anterior myocardial infarction, prior history of V-Tach, sta tus post automatic implantable cardioverter-defibrillator. 6. History of right lung cancer in remission with chemotherapy. 7. Status post meningioma resection with cephalgia, improved. PLAN: We will continue ICU observation overnight. Continue IV hydration. Empiric antibiotic therap y. Recheck labs in a.m. Consider transfer to the floor tomorrow morning. Dictated By: SHERRI ROSS MD, SR/LAYNE Conf#: [id number] DID#: [id number]
[2018-08-10] MEDS: ATORVASTATIN 10 MG TAB PO SCH (20:49)
[2018-08-11] VITALS (29 sets, daily range): BP systolic 112–144; BP diastolic 58–106; PULSE 66–106; RESP 16–22
[2018-08-11] MEDS: [UNRECOGNIZED DRUG - REMARK] XX SCH (02:00)
[2018-08-11] MEDS: SOD CHLORIDE 0.9% 1,000 ML IV SCH ×3 (02:09→20:48)
[2018-08-11] MEDS: LEVOTHYROXINE 100 MCG TAB PO SCH (05:55)
--- NOTE | 2018-08-11 07:21 | CONS ---
Assessment/Plan Assessment/Plan Hospital Course (Demo Recall) 1) UTI due to proteus and e.coli+ESBL d/c ceftriaxone and start merrem 2) ARF will order renal u/s to verify no obstruction or abscess some improvement since her admission creatinine was 0.87 in march 2018 3) lung CA with marline mets to re-start chemo soon 4) CAD with AICD 5) hx of c.dif no current diarrhea, to start probiotic (change from lactobacillus to florajen3) 6) thrombocytopenia this is not new but current infection may be having an impact 7) COPD Consultation Date/Type/Reason Admit Date/Time Aug 07, 2018 at 23:26 Date of Consultation: Aug 11, 2018 Type of Consult ID Date/Time of Note DATE: 08/11/18 TIME: 07:00 Hx of Present Illness pt was brought into hospital due to BRENNER which has since resolved She was noted to have pyuria upon admission and started on ceftriaxone on 08/09 she currently has a zaldivar she denies F, C, NS but had a slight fever yesterday yesterday she was transferred to ICU due to low B/P She says breathing is not so good but she denies sore throat, cough no V, D pt to get re-started on chemotherapy for her lung CA due to marline mets her last chemo was about 6 weeks ago Past Medical History PVD, COPD, hypothyroidism, CAD, MA, CVA, meningioma Home Meds Active Scripts Levetiracetam* (Keppra*) 500 Mg Tablet, 500 MG PO BID for 30 Days, #60 TAB Prov:SHERRI ROSS MD 04/15/18 Amiodarone Hcl* (Amiodarone Hcl*) 200 Mg Tablet, 200 MG PO BID for 30 Days, #60 TAB Prov:SHERRI ROSS MD 04/15/18 Reported Medications Levothyroxine Sodium (Levothroid) 100 Mcg Tablet, 100 MCG PO QAM for 90 Days, #90 08/08/18 Lisinopril* (Lisinopril*) 10 Mg Tablet, 10 MG PO DAILY, #30 TAB 09/05/17 Atorvastatin Calcium (Atorvastatin Calcium) 10 Mg Tablet, 10 MG PO QHS, #30 TAB 09/05/17 Aspirin* (Aspirin* EC) 81 Mg Tablet.dr, 81 MG PO DAILY, TAB 09/05/17 Cyanocobalamin* (Vitamin B12*) 500 Mcg Tab, 1000 MCG PO DAILY, TAB 09/05/17 Lactobacillus Acidophilus (Probiotic) 1 Each Capsule, 1 CAP PO DAILY, CAP 09/05/17 Phenytoin* (Phenytoin*) 125 Mg/5 Ml Oral.susp, 3 ML PO TID for 30 Days, BOTTLE 09/05/17 Omeprazole* (Omeprazole*) 20 Mg Capsule.dr, 20 MG PO DAILY, #30 CAP 09/05/17 Trazodone Hcl* (Trazodone Hcl*) 50 Mg Tablet, 50 MG PO TID, #90 TAB 09/05/17 Raloxifene Hcl* (Evista*) 60 Mg Tablet, 60 MG PO DAILY, TAB 09/05/17 Carvedilol* (Carvedilol*) 6.25 Mg Tablet, 6.25 MG PO BID, #60 TAB 09/05/17 Melatonin (Melatonin) 3 Mg Tablet.sa, 3 MG PO HS, TAB.SA 09/05/17 Furosemide* (Furosemide*) 20 Mg Tablet, 20 MG PO DAILY, #60 TAB 09/05/17 Discontinued Scripts Levothyroxine Sodium* (Levothyroxine Sodium*) 50 Mcg Tablet, 50 MCG PO DAILY@06 for 30 Days, #30 TAB Prov:SHERRI ROSS MD 04/15/18 Medications Current Medications Morphine Sulfate (morphine) 2 mg Q4H PRN IV Pain Last administered on 08/10/18at 01:39; Admin Dose 2 MG; Start 08/08/18 at 06:30 Ondansetron HCl (Zofran Inj) 4 mg Q4H PRN IV NAUSEA AND/OR VOMITING; Start 08/08/18 at 06:30 Aspirin (Aspirin) 81 mg DAILY PO Last administered on 08/10/18at 08:19; Admin Dose 81 MG; Start 08/08/18 at 09:00 Atorvastatin Calcium (Lipitor) 10 mg HS PO Last administered on 08/10/18at 20:49; Admin Dose 10 MG; Start 08/08/18 at 21:00 Carvedilol (Coreg) 6.25 mg BID PO Last administered on 08/08/18at 08:31; Admin Dose 6.25 MG; Start 08/08/18 at 09:00; Status Hold Cyanocobalamin (Vitamin B12) 500 mcg DAILY PO Last administered on 08/10/18 08:19; Admin Dose 500 MCG; Start 08/08/18 at 09:00 Levothyroxine Sodium (Synthroid) 100 mcg DAILY@06 PO Last administered on 08/11/18at 05:55; Admin Dose 100 MCG; Start 08/08/18 at 07:00 Raloxifene HCl (Evista) 60 mg DAILY PO Last administered on 08/10/18 11:05; Admin Dose 60 MG; Start 08/08/18 at 09:00 Phenytoin (Dilantin Susp Cup) 125 mg TID PO Last administered on 08/10/18at 20:50; Admin Dose 125 MG; Start 08/08/18 at 09:00 Lactobacillus Acidophilus/ Rhamnosus (Culturelle) 1 cap DAILY PO Last administered on 08/10/18 08:19; Admin Dose 1 CAP; Start 08/08/18 at 09:00 Ceftriaxone Sodium 50 ml @ 100 mls/hr Q24H IVPB Last administered on 08/10/18 09:17; Admin Dose 100 MLS/HR; Start 08/09/18 at 10:00 Miscellaneous Information (*Order Clarification Bulletin) KAYEXALATE ORDER BID....O... Q8H XX ; Start 08/09/18 at 10:00 Trazodone HCl (Desyrel) 50 mg TID PO Last administered on 08/10/18at 21:14; Admin Dose 50 MG; Start 08/10/18 at 09:00 Lorazepam (Ativan) 0.5 mg Q6H PRN IV AGITATION/ANXIETY; Start 08/10/18 at 01:00 Sodium Chloride 1,000 ml @ 100 mls/hr Q10H IV Last administered on 08/11/18 02:09; Admin Dose 100 MLS/HR; Start 08/10/18 at 05:00 Norepinephrine 250 ml @ 1.875 mls/ hr TITRATE IV Last administered on 08/10/18 05:08; Admin Dose 3.75 MLS/HR; Start 08/10/18 at 04:30 Allergies: Coded Allergies: No Known Drug Allergies (Verified Allergy, Mild, 04/05/18) Past Surgical History craniotomy, fem-pop bypass, pacer, cardiac stent Social History Smoking Status: Former smoker Exam/Review of Systems Exam Vitals Vital Signs Date Temp Pulse Resp B/P (MAP) Pulse Ox O2 O2 Flow FiO2 Time Delivery Rate 08/11/18 68 18 137/63 100 06:30 (87) 08/11/18 Nasal 06:00 Cannula 08/11/18 2.0 04:00 08/11/18 98.2 00:00 Intake and Output 08/10/18 08/10/18 08/11/18 1515:00 23:00 07:00 IntakeIntake Total 869.75 ml 661.500 ml 800 ml OutputOutput Total 280 ml 425 ml 330 ml BalanceBalance 589.75 ml 236.500 ml 470 ml Constitutional: alert, oriented Eyes: nl sclera ENMT: mucosa pink and moist Respiratory: clear to auscultation Cardiovascular: regular rate and rhythm Gastrointestinal: soft, other (some discomfort on abd exam but no pain) Extremities: other (no edema) Results Result Diagram: 08/11/18 0430 08/11/18 0430 Results 24hrs Laboratory Tests Test 08/11/18 04:30 White Blood Count 4.9 # Red Blood Count 2.62 L Hemoglobin 8.3 L Hematocrit 25.8 L Mean Corpuscular Volume 98.5 Mean Corpuscular Hemoglobin 31.7 Mean Corpuscular Hemoglobin Concent 32.2 Red Cell Distribution Width 15.8 H Platelet Count 114 #L Mean Platelet Volume 11.3 H Immature Granulocytes % 0.800 H Neutrophils % 67.5 Lymphocytes % 19.6 Monocytes % 8.7 Eosinophils % 3.0 Basophils % 0.4 Nucleated Red Blood Cells % 0.0 Immature Granulocytes # 0.040 H Neutrophils # 3.3 Lymphocytes # 1.0 Monocytes # 0.4 Eosinophils # 0.2 Basophils # 0.0 Nucleated Red Blood Cells # 0.0 Sodium Level 141 Potassium Level 3.7 Chloride Level 116 H Carbon Dioxide Level 18 L Anion Gap 7 Blood Urea Nitrogen 21 H Creatinine 1.50 H Est Glomerular Filtrat Rate mL/min Glucose Level 66 #L Calcium Level 7.1 L Magnesium Level 1.9 Medications Medication Current Medications Morphine Sulfate (morphine) 2 mg Q4H PRN IV Pain Last administered on 08/10/18at 01:39; Admin Dose 2 MG; Start 08/08/18 at 06:30 Ondansetron HCl (Zofran Inj) 4 mg Q4H PRN IV NAUSEA AND/OR VOMITING; Start 08/08/18 at 06:30 Aspirin (Aspirin) 81 mg DAILY PO Last administered on 08/10/18 08:19; Admin Dose 81 MG; Start 08/08/18 at 09:00 Atorvastatin Calcium (Lipitor) 10 mg HS PO Last administered on 08/10/18 20:49; Admin Dose 10 MG; Start 08/08/18 at 21:00 Carvedilol (Coreg) 6.25 mg BID PO Last administered on 08/08/18 08:31; Admin Dose 6.25 MG; Start 08/08/18 at 09:00; Status Hold Cyanocobalamin (Vitamin B12) 500 mcg DAILY PO Last administered on 08/10/18 08:19; Admin Dose 500 MCG; Start 08/08/18 at 09:00 Levothyroxine Sodium (Synthroid) 100 mcg DAILY@06 PO Last administered on 08/11/18 05:55; Admin Dose 100 MCG; Start 08/08/18 at 07:00 Raloxifene HCl (Evista) 60 mg DAILY PO Last administered on 08/10/18 11:05; Admin Dose 60 MG; Start 08/08/18 at 09:00 Phenytoin (Dilantin Susp Cup) 125 mg TID PO Last administered on 08/10/18 20:50; Admin Dose 125 MG; Start 08/08/18 at 09:00 Lactobacillus Acidophilus/ Rhamnosus (Culturelle) 1 cap DAILY PO Last administe red on 08/10/18 08:19; Admin Dose 1 CAP; Start 08/08/18 at 09:00 Ceftriaxone Sodium 50 ml @ 100 mls/hr Q24H IVPB Last administered on 08/10/18 09:17; Admin Dose 100 MLS/HR; Start 08/09/18 at 10:00 Miscellaneous Information (*Order Clarification Bulletin) KAYEXALATE ORDER BID....O... Q8H XX ; Start 08/09/18 at 10:00 Trazodone HCl (Desyrel) 50 mg TID PO Last administered on 08/10/18 21:14; Adm in Dose 50 MG; Start 08/10/18 at 09:00 Lorazepam (Ativan) 0.5 mg Q6H PRN IV AGITATION/ANXIETY; Start 08/10/18 at 01:00 Sodium Chloride 1,000 ml @ 100 mls/hr Q10H IV Last administered on 08/11/18at 0 2:09; Admin Dose 100 MLS/HR; Start 08/10/18 at 05:00 Norepinephrine 250 ml @ 1.875 mls/ hr TITRATE IV Last administered on 08/10/18at 05:08; Admin Dose 3.75 MLS/HR; Start 08/10/18 at 04:30 NANDA GARDNER MD Aug 11, 2018 07:10
[2018-08-11] MEDS: ASPIRIN 81 MG TAB PO SCH (09:00)
[2018-08-11] MEDS: traZODone 50 MG TAB PO SCH ×3 (09:00→20:49)
[2018-08-11] MEDS: L ACIDOPHIL/B LACTIS/B LONGUM CAPSULE PO SCH ×2 (09:00→20:49)
--- NOTE | 2018-08-11 09:26 | PN ---
DATE: 08/11/2018 Dr. Baltazar' ID consultation and recommendations greatly appreciated. SUBJECTIVE: The patient is more awake, responsive, less confused today. VITAL SIGNS: Temperature 98.2, blood pressure 137/63 off pressors. Mild pallor or cyanosis. LUNGS: Clinically clear. HEART: S1, S2 with no definite gallops. EXTREMITIES: No edema. LABORATORY DATA: WBC count 4.9, hematocrit 25.8, platelet count is 114,000. Sodium 141, potassium 3 .7, BUN 21, creatinine 1.5. IMPRESSION: 1. Delirium related to urinary tract infection with Escherichia coli extended-spectrum beta-lactamas e and Proteus. Patient started on Merrem. 2. Acute renal failure with element of prerenal azotemia. 3. Right lung carcinoma in remission. 4. Coronary artery disease, status post anterior wall myocardial infarction, status post automatic i mplantable cardioverter-defibrillator placement. 5. History of meningioma status post resection. 6. Seizure disorder. 7. COPD. PLAN: Patient will be transferred to [facility] with present orders. Closely observe for sepsis. Treat a ccordingly. Dictated By: SHERRI ROSS MD SR/NTS Conf#: [id number] DID#: [id number]
[2018-08-11] MEDS: MEROPENEM 500MG/50 ML (PMX) 50 ML IVPB SCH ×2 (12:27→21:43)
[2018-08-11] MEDS: CYANOCOBALAMIN 500 MCG TAB PO SCH (12:29)
[2018-08-11] MEDS: PHENYTOIN (100 MG/4 ML) CUP PO SCH ×3 (12:29→20:50)
[2018-08-11] MEDS: RALOXIFENE 60 MG TAB PO SCH (12:29)
--- NOTE | 2018-08-11 15:41 | RADRPT ---
Vent Rate: 95 bpm RR Interval: 0 msec NM Interval: 0 msec QRS Duration: 114 msec QT Interval: 386 msec QTC Interval: 485 msec P-R-T [place]: 0 - 30 - 0 degrees Likely sinus rhythm Anterior infarct , age undetermined ST & T wave abnormality, consider inferolateral ischemia Abnormal ECG Electronically Signed By: Carlos Haskins
[2018-08-11] MEDS: ATORVASTATIN 10 MG TAB PO SCH (20:49)
[2018-08-12] VITALS (13 sets, daily range): BP systolic 117–158; BP diastolic 57–73; PULSE 68–108; RESP 16–18
[2018-08-12] MEDS: LEVOTHYROXINE 100 MCG TAB PO SCH (06:07)
--- NOTE | 2018-08-12 07:01 | CONS ---
Assessment/Plan Assessment/Plan Hospital Course (Demo Recall) 1) UTI due to proteus and e.coli+ESBL d/c ceftriaxone and start merrem continue merrem for 7 days (thru 08/17/18) renal u/s shows complex renal cyst but doubt it is infected 2) ARF will order renal u/s to verify no obstruction or abscess some improvement since her admission creatinine was 0.87 in march 201808/12 - pt has medical renal ds noted on renal u/s slow improvement in creatinine 3) lung CA with marline mets to re-start chemo soon 4) CAD with AICD 5) hx of c.dif no current diarrhea, to start probiotic (change from lactobacillus to florajen3) 6) thrombocytopenia this is not new but current infection may be having an impact 7) COPD Consultation Date/Type/Reason Admit Date/Time Aug 07, 2018 at 23:26 Initial Consult Date 08/11/18 Type of Consult ID Date/Time of Note DATE: 08/12/18 TIME: 06:58 24 HR Interval Summary Free Text/Dictation doing well no N, V, BRENNER, D breathing is ok Exam/Review of Systems Exam Vitals Vital Signs Date Temp Pulse Resp B/P (MAP) Pulse Ox O2 O2 Flow FiO2 Time Delivery Rate 08/12/18 98.2 78 18 117/57 95 04:15 (77) 08/11/18 Nasal 2.0 20:00 Cannula Intake and Output 08/11/18 08/11/18 08/12/18 1515:00 23:00 07:00 IntakeIntake Total 825 ml 350 ml 600 ml OutputOutput Total 360 ml 540 ml 600 ml BalanceBalance 465 ml -190 ml 0 ml Constitutional: alert, oriented Eyes: nl sclera Respiratory: clear to auscultation Cardiovascular: regular rate and rhythm Gastrointestinal: soft, non-tender Results Result Diagram: 08/11/1842908/11/18 043 Results 24hrs Laboratory Tests Test 08/11/18 07:01 Bedside Glucose 75 Medications Medication Current Medications Morphine Sulfate (morphine) 2 mg Q4H PRN IV Pain Last administered on 08/10/18at 01:39; Admin Dose 2 MG; Start 08/08/18 at 06:30 Ondansetron HCl (Zofran Inj) 4 mg Q4H PRN IV NAUSEA AND/OR VOMITING; Start 08/08/18 at 06:30 Aspirin (Aspirin) 81 mg DAILY PO Last administered on 08/10/18 08:19; Admin Dose 81 MG; Start 08/08/18 at 09:00 Atorvastatin Calcium (Lipitor) 10 mg HS PO Last administered on 08/11/18 20:49; Admin Dose 10 MG; Start 08/08/18 at 21:00 Carvedilol (Coreg) 6.25 mg BID PO Last administered on 08/08/18 08:31; Admin Dose 6.25 MG; Start 08/08/18 at 09:00; Status Hold Cyanocobalamin (Vitamin B12) 500 mcg DAILY PO Last administered on 08/11/18 12:29; Admin Dose 500 MCG; Start 08/08/18 at 09:00 Levothyroxine Sodium (Synthroid) 100 mcg DAILY@06 PO Last administered on 08/12/18 06:07; Admin Dose 100 MCG; Start 08/08/18 at 07:00 Raloxifene HCl (Evista) 60 mg DAILY PO Last administered on 08/11/18 12:29; Admin Dose 60 MG; Start 08/08/18 at 09:00 Phenytoin (Dilantin Susp Cup) 125 mg TID PO Last administered on 08/11/18 20:50; Admin Dose 125 MG; Start 08/08/18 at 09:00 Trazodone HCl (Desyrel) 50 mg TID PO Last administered on 08/11/18 20:49; Admin Dose 50 MG; Start 08/10/18 at 09:00 Lorazepam (Ativan) 0.5 mg Q6H PRN IV AGITATION/ANXIETY; Start 08/10/18 at 01:00 Sodium Chloride 1,000 ml @ 100 mls/hr Q10H IV Last administered on 08/11/18 20:48; Admin Dose 100 MLS/HR; Start 08/10/18 at 05:00 Norepinephrine 250 ml @ 1.875 mls/ hr TITRATE IV Last administered on 08/10/18 05:08; Admin Dose 3.75 MLS/HR; Start 08/10/18 at 04:30 Meropenem/Sodium Chloride 50 ml @ 100 mls/hr Q12 IVPB Last administered on 08/11/18 21:43; Admin Dose 100 MLS/HR; Start 08/11/18 at 09:00 Lactobacillus Acidophilus (Florajen3 Capsule) 1 each BID PO Last administered on 08/11/18at 20:49; Admin Dose 1 EACH; Start 08/11/18 at 09:00 NANDA GARDNER MD Aug 12, 2018 07:01
[2018-08-12] MEDS: RALOXIFENE 60 MG TAB PO SCH (08:30)
[2018-08-12] MEDS: L ACIDOPHIL/B LACTIS/B LONGUM CAPSULE PO SCH ×2 (08:30→21:33)
[2018-08-12] MEDS: ASPIRIN 81 MG TAB PO SCH (08:30)
[2018-08-12] MEDS: traZODone 50 MG TAB PO SCH ×3 (08:30→21:33)
[2018-08-12] MEDS: CYANOCOBALAMIN 500 MCG TAB PO SCH (08:30)
[2018-08-12] MEDS: PHENYTOIN (100 MG/4 ML) CUP PO SCH ×3 (08:33→21:33)
[2018-08-12] MEDS: MEROPENEM 500MG/50 ML (PMX) 50 ML IVPB SCH ×2 (09:32→21:33)
[2018-08-12] MEDS ORDERED: POTASSIUM CHLORIDE (SR) 20 MEQ TAB PO STA (10:30)
[2018-08-12] MEDS: SOD CHLORIDE 0.9% 1,000 ML IV SCH ×2 (11:06→14:00)
--- NOTE | 2018-08-12 16:00 | PN ---
DATE: 08/12/2018 SUBJECTIVE: The patient is lethargic, presently not agitated. PHYSICAL EXAMINATION: VITAL SIGNS: Temperature 98.0, blood pressure 158/73, O2 saturation on 98% on 2 liters nasal cannula . SKIN: Mild pallor without cyanosis. LUNGS: Exam revealed decreased breath sounds at bases. HEART: S1, S2 heard. No definite gallops. EXTREMITIES: No edema. LABORATORY DATA: WBC count 4.9, hematocrit 23.9, platelet count 101,000. Potassium 3.4, BUN 23, cre atinine 1.83. IMPRESSION: 1. Delirium related to urinary tract infection with Escherichia coli, extended-spectrum beta-lactama ses (ESBL) and Proteus. Patient on Merrem. 2. Acute renal failure azotemia, improving. 3. Right lung carcinoma, in remission. 4. Coronary artery disease, status post anterior wall myocardial infarction, status post automatic i mplantable cardioverter-defibrillator (AICD). 5. History of meningioma, status post resection. 6. Seizure disorder. 7. Chronic obstructive pulmonary disease (COPD). PLAN: We will continue IV Merrem, replace potassium. Recheck labs in a.m. Dictated By: SHERRI ROSS MD, SR/LAYNE Conf#: [id number] DID#: [id number]
[2018-08-12] MEDS: ATORVASTATIN 10 MG TAB PO SCH (21:33)
--- NOTE | 2018-08-12 23:43 | CONS ---
DATE OF ADMISSION: 08/07/2018 DATE OF CONSULTATION: 08/12/2018 PHYSICIAN REQUESTING CONSULTATION: Miguel Rojas M.D. REASON FOR CONSULTATION: Nonsmall cell carcinoma of the lung. Dear Dr. Rojas: Thank you very much for asking me to see this very interesting and pleasant patient in oncologic cons ultation. As you know, I am quite familiar with Ms. Adam who is an 88-year-old female who was or iginally seen by me in 08/2017. At that time, the patient was hospitalized because of increasing stephen n in the patient's right upper chest and axilla. This had been present for approximately 3 months. The patient at that time was found to have a 6.5 cm peripheral pleural-based mass in the posterior ri ght upper chest with chest wall invasion. There was bony destruction of the ribs in the T5 vertebrae . There was also 1.8 cm right upper lobe pulmonary nodule. 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 The tumor did expressed PD-L1. During the hospitalization, the patient was started on pembrolizumab. She was then discharged home t o a [facility] facility where she has been a patient since. The patient initially was to be treated with pembrolizumab every 3 weeks. Unfortunately, in spite of the fact that the patient has an obvious response, the insurance company would not approve pembroliz umab and the patient was switched to Tecentriq (atezolizumab), which she initially was receiving ever y 2 weeks. The patient continued to improve and it was decided to try and increase the interval betw een therapy. The patient more recently has been receiving therapy every 6 weeks. Last treatment was on 07/10/2018. As mentioned, the patient has had an excellent response. She has had a significant decreased in pain in the right chest area and is no longer requiring any type of analgesia. Her appetite is increased considerably. She has had no complaints of cough or shortness of breath. The patient's last PET-CT scan was done on 07/16/2018. This was compared with the previous scan of . There has been a significant decreased in the size and metabolic uptake of the previous i nfiltrative mass in the right posterior chest. Most recent SUV was 2.6. Previous SUV was 5.5. The patient was scheduled to have a chemotherapy again this week. The patient is admitted to [facility] at this time after presenting to Dr. Antonio claudio in the emergency room because of increasing headaches and decreased responsiveness over the past week prior to admission. On admission, the patient had a white count of 6300 with an absolute neutrophil count of 3400, hemogl obin was 9.5, hematocrit was 30 and platelet count 116,000. Protime on admission was 15.9 seconds wi th an INR of 1.26, PTT was 25.6 seconds. Sodium on admission was 134, potassium 6.1, BUN 51, creatinine 2.01. There has been gradual improvem ent so that today sodium was 141, potassium 3.4, creatinine 1.33, BUN 23. HISTORY OF PRESENT ILLNESS: Urinalysis on admission did show greater than 182, white blood cells per high power field. RBCs were 14 per high power field. There were bacteria seen. Urine cultures did show Proteus mirabilis as well as E. coli, which was ESBL positive. Blood cultures thus far are neg ative. The patient is presently taking meropenem. The patient's past medical problems include a history of meningioma, which has been resected in the p ast. The patient also has a history of blindness. There has also been a history of coronary artery disease with a previous anterior myocardial infarcti on. The patient does have placement of AICD and is bradycardic. There has also been hypothyroidism as well as chronic obstructive pulmonary disease. PAST SURGICAL HISTORY: Included a meningioma, tubal ligation and appendectomy. The patient has had a biopsy of the right subpleural mass. Imaging studies have included a CT scan of the brain, which shows calcified meningioma, which is unch anged from previous. Renal ultrasound also shows increased cortical echogenicity in both kidneys sug gesting medical renal disease. There are other cysts noted as well and a 4.3 cm mid abdominal aortic aneurysm. PHYSICAL EXAMINATION: GENERAL: At this time, reveals a well-developed, chronically ill-appearing female who is in no acute distress. The patient is arousable. She is, however, confused. VITAL SIGNS: Temperature 98.5 orally, pulse 68 per minute and regular, respirations 16, blood pressu re 140/67, pulse oximetry 91%. SKIN: Poor skin turgor. There are no ecchymosis, petechiae or rashes. HEENT: Normocephalic. No evidence of trauma. Pupils equal, round, reactive to light and accommodat ion. There is no scleral icterus. Extraocular movements are intact. The oral mucosa is moist witho ut lesions. Tongue is well papillated. No gingival hyperplasia, no hypertrophy of Waldeyer's ring. NECK: Supple. No jugular venous distention or thyroid enlargement. No carotid bruits. CHEST: Symmetrical. There is no pain on palpation of the spine, sternum, clavicles or ribs. Breath sounds are intact. There are no rhonchi, wheezes, rales or rubs. There is an implanted defibrillat or in the left subclavicular area. HEART: Regular sinus rhythm, no S3, S4 or murmurs. No rubs. BREASTS: Atrophic. There are no masses, skin retraction, or nipple inversion. Abdomen is flat and soft. There is no organomegaly, mass or tenderness. Bowel sounds are active. There is a Woodall cath eter in place. EXTREMITIES: No clubbing, no edema or cyanosis. No palpable cords or Homans sign. NEUROLOGIC: The patient has marked decrease in vision. She is confused. No other focal neurologic abnormalities. DISCUSSION: As noted, this patient has a non-small cell carcinoma of the lung, which was not resecta ble. The patient was started on checkpoint inhibitors and has had an excellent response to Tecentriq (atezolizumab). The patient has had a complete resolution of previous symptoms, which included a significant chest wa ll pain. At the same time, there has been improvement in appetite as well as a demonstrable improvem ent on PET-CT scan. The patient's deterioration at this time, I feel is related to a urinary tract infection. As mention ed, the patient is growing both Proteus mirabilis and ESBL E. coli. This is sensitive to gentamicin as well as tobramycin. The patient is presently on meropenem to which the E. coli is sensitive. At this time, we would continue antibiotic therapy as per Dr. Baltazar. As noted, the patient has been r eceiving therapy with checkpoint inhibitors, which has basically been without toxicity. Only associa mckayla abnormality may be worsening the patient's thyroid function. She does have a history of hypothyr oidism. On 07/31/2018, the TSH has continued to increase 148.81. T4 was 5.20. The patient has been on levothyroxine. Once again, thank you very much for the opportunity of participating in the medical care of this very interesting and pleasant patient. I will be happy to follow this patient with you and assist in her oncologic evaluation and follow up as necessary. Dictated By: ROBYN CARDOZA MD SR/NTS Conf#: [id number] DID#: [id number] CC: ANEESH SWAN MD; MIGUEL ROJAS MD; CHRIS ZHANG MD;*EndCC*
[2018-08-13] VITALS (10 sets, daily range): BP systolic 144–152; BP diastolic 65–72; PULSE 67–95; RESP 16–20
[2018-08-13] MEDS: LEVOTHYROXINE 100 MCG TAB PO SCH (05:20)
--- NOTE | 2018-08-13 06:50 | CONS ---
Assessment/Plan Assessment/Plan Hospital Course (Demo Recall) 1) UTI due to proteus and e.coli+ESBL d/c ceftriaxone and start merrem continue merrem for 7 days (thru 08/17/18) renal u/s shows complex renal cyst but doubt it is infected 08/13 - doing well, no po antibiotic available to treat her UTI continue merrem thru 08/17 2) ARF will order renal u/s to verify no obstruction or abscess some improvement since her admission creatinine was 0.87 in march 201808/12 - pt has medical renal ds noted on renal u/s slow improvement in creatinine 08/13 - creatinine has improved but not enough to increase her dose of merrem 3) lung CA with marline mets to re-start chemo soon 4) CAD with AICD 5) hx of c.dif no current diarrhea, to start probiotic (change from lactobacillus to florajen3) 6) thrombocytopenia this is not new but current infection may be having an impact 7) COPD Consultation Date/Type/Reason Admit Date/Time Aug 07, 2018 at 23:26 Initial Consult Date 08/11/18 Type of Consult ID Date/Time of Note DATE: 08/13/18 TIME: 06:48 24 HR Interval Summary Free Text/Dictation pt's appetite is good no dysphagia she had a BM yesterday no SOB Exam/Review of Systems Exam Vitals Vital Signs Date Temp Pulse Resp B/P (MAP) Pulse Ox O2 O2 Flow FiO2 Time Delivery Rate 08/13/18 98.1 67 16 144/72 92 Nasal 04:09 (96) Cannula 08/12/18 2.0 22:00 Intake and Output 08/12/18 08/12/18 08/13/18 1515:00 23:00 07:00 IntakeIntake Total 700 ml 400 ml OutputOutput Total 1000 ml 1300 ml BalanceBalance -300 ml -900 ml Constitutional: alert ENMT: mucosa pink and moist Respiratory: clear to auscultation Cardiovascular: regular rate and rhythm Gastrointestinal: soft, non-tender Results Result Diagram: 08/12/18 0725 08/12/18 0725 Results 24hrs Laboratory Tests Test 08/12/18 07:25 White Blood Count 4.9 Red Blood Count 2.48 L Hemoglobin 7.6 L Hematocrit 23.9 L Mean Corpuscular Volume 96.4 Mean Corpuscular Hemoglobin 30.6 Mean Corpuscular Hemoglobin Concent 31.8 L Red Cell Distribution Width 15.8 H Platelet Count 101 L Mean Platelet Volume 13.2 H Immature Granulocytes % 0.400 Neutrophils % 63.0 Lymphocytes % 23.5 Monocytes % 9.4 Eosinophils % 3.3 Basophils % 0.4 Nucleated Red Blood Cells % 0.0 Immature Granulocytes # 0.020 Neutrophils # 3.1 Lymphocytes # 1.2 Monocytes # 0.5 Eosinophils # 0.2 Basophils # 0.0 Nucleated Red Blood Cells # 0.0 Sodium Level 141 Potassium Level 3.4 L Chloride Level 114 H Carbon Dioxide Level 18 L Anion Gap 9 Blood Urea Nitrogen 23 H Creatinine 1.33 H Est Glomerular Filtrat Rate mL/min Glucose Level 69 L Calcium Level 7.2 L Medications Medication Current Medications Morphine Sulfate (morphine) 2 mg Q4H PRN IV Pain Last administered on 08/10/18 01:39; Admin Dose 2 MG; Start 08/08/18 at 06:30 Ondansetron HCl (Zofran Inj) 4 mg Q4H PRN IV NAUSEA AND/OR VOMITING; Start 08/08/18 at 06:30 Aspirin (Aspirin) 81 mg DAILY PO Last administered on 08/12/18 08:30; Admin Dose 81 MG; Start 08/08/18 at 09:00 Atorvastatin Calcium (Lipitor) 10 mg HS PO Last administered on 08/12/18 21:33; Admin Dose 10 MG; Start 08/08/18 at 21:00 Carvedilol (Coreg) 6.25 mg BID PO Last administered on 08/08/18 08:31; Admin Dose 6.25 MG; Start 08/08/18 at 09:00; Status Hold Cyanocobalamin (Vitamin B12) 500 mcg DAILY PO Last administered on 08/12/18 08:30; Admin Dose 500 MCG; Start 08/08/18 at 09:00 Levothyroxine Sodium (Synthroid) 100 mcg DAILY@06 PO Last administered on 08/13/18 05:20; Admin Dose 100 MCG; Start 08/08/18 at 07:00 Raloxifene HCl (Evista) 60 mg DAILY PO Last administered on 08/12/18 08:30; Admin Dose 60 MG; Start 08/08/18 at 09:00 Phenytoin (Dilantin Susp Cup) 125 mg TID PO Last administered on 08/12/18 21:33; Admin Dose 125 MG; Start 08/08/18 at 09:00 Trazodone HCl (Desyrel) 50 mg TID PO Last administered on 08/12/18 21:33; Ad min Dose 50 MG; Start 08/10/18 at 09:00 Lorazepam (Ativan) 0.5 mg Q6H PRN IV AGITATION/ANXIETY; Start 08/10/18 at 01:00 Sodium Chloride 1,000 ml @ 50 mls/hr Q20H IV Last administered on 08/12/18 1 4:00; Admin Dose 50 MLS/HR; Start 08/10/18 at 05:00 Norepinephrine 250 ml @ 1.875 mls/ hr TITRATE IV Last administered on 08/10/18 05:08; Admin Dose 3.75 MLS/HR; Start 08/10/18 at 04:30 Meropenem/Sodium Chloride 50 ml @ 100 mls/hr Q12 IVPB Last administered on 08/12/18 21:33; Admin Dose 100 MLS/HR; Start 08/11/18 at 09:00 Lactobacillus Acidophilus (Florajen3 Capsule) 1 each BID PO Last administered on 08/12/18 21:33; Admin Dose 1 EACH; Start 08/11/18 at 09:00 NANDA GARDNER MD Aug 13, 2018 06:50
[2018-08-13] MEDS: CYANOCOBALAMIN 500 MCG TAB PO SCH (08:40)
[2018-08-13] MEDS: traZODone 50 MG TAB PO SCH ×3 (08:40→20:51)
[2018-08-13] MEDS: RALOXIFENE 60 MG TAB PO SCH (08:40)
[2018-08-13] MEDS: ASPIRIN 81 MG TAB PO SCH (08:41)
[2018-08-13] MEDS: L ACIDOPHIL/B LACTIS/B LONGUM CAPSULE PO SCH ×2 (08:41→20:51)
[2018-08-13] MEDS: SOD CHLORIDE 0.9% 1,000 ML IV SCH (08:50)
[2018-08-13] MEDS: PHENYTOIN (100 MG/4 ML) CUP PO SCH (08:52)
[2018-08-13] MEDS: MEROPENEM 500MG/50 ML (PMX) 50 ML IVPB SCH ×2 (09:29→20:51)
[2018-08-13] MEDS ORDERED: POTASSIUM CHLORIDE 20 MEQ in SOD CHLORIDE 0.9% 1,000 ML IV SCH (13:29)
[2018-08-13] MEDS: NS + KCL 20 MEQ 1,000 ML IV SCH (15:34)
--- NOTE | 2018-08-13 16:51 | PN ---
DATE: 08/13/2018 SUBJECTIVE: The patient is less agitated today, still confused at times. PHYSICAL EXAMINATION: VITAL SIGNS: Temperature 98.1, blood pressure 152/68, O2 sats 96% on 2 liters nasal cannula. CHEST: Revealed decreased breath sounds at bases. HEART: S1, S2. No definite gallops. EXTREMITIES: No edema. Moderate wasting of the lower extremities are noted. LABORATORY DATA: WBC count is 5.1, hematocrit 27, platelet count is 96,000. Potassium 3.5, BUN 17, creatinine 1.07. IMPRESSION: 1. Encephalopathy secondary to urinary tract infection, Proteus and Escherichia coli extended-spectr um beta-lactamase. 2. Acute renal failure with prerenal azotemia, improving. 3. Right lung carcinoma in remission. 4. Coronary artery disease, status post anterior myocardial infarction, status post AICD. 5. History of meningioma status post resection. 6. Seizure disorder. 7. Chronic obstructive pulmonary disease. Dr. Nunez's oncology consultation is greatly appreciated. PLAN: Continue IV antibiotics per Dr. Baltazar family mainly Merrem and observe. Her Dilantin levels we re high this morning at 20.5. Will hold the Dilantin today and we will decrease the dose to 100 mg t .i.d. Also decrease the trazodone dose to 50 mg at bedtime. Dictated By: SHERRI ROSS MD, SR/LAYNE Conf#: [id number] DID#: [id number]
[2018-08-13] MEDS: ATORVASTATIN 10 MG TAB PO SCH (20:51)
--- NOTE | 2018-08-13 22:23 | PN ---
DATE: 08/13/2018 SUBJECTIVE: The patient has been moved to a private room and is much happier. The patient is very c onversant this afternoon ____ oriented. She denies any complaints of pain. She states her appetite is good. OBJECTIVE: GENERAL: The patient is a well-developed, well-nourished female appearing her stated age. VITAL SIGNS: Temperature 98.1, pulse is 78 per minute and normal, respirations 18 per minute, blood pressure 145/65, pulse oximetry 94% on 2 liters nasal oxygen. SKIN: No ecchymosis, no petechiae or rashes. HEENT: Normocephalic. No evidence of trauma. Pupils equal, round, reactive to light and accommodat ion. Sclerae nonicteric. Oral mucosa is moist without lesions. There is nasal oxygen in place. Th ere is decreased visual acuity. NECK: Supple. No jugular venous distention or thyroid enlargement. No carotid bruits. CHEST: Clear to auscultation and percussion. No rhonchi, wheezes, rales or rubs. No pain on percus nika of the sternum, clavicles or ribs. No pain in right scapular area. HEART: Regular sinus rhythm, no S3, S4 or murmurs. ABDOMEN: Soft, no masses, no ascites. Bowel sounds are active. EXTREMITIES: No clubbing. No edema or cyanosis. No palpable cords or Homans sign. NEUROLOGIC: Normal except for the patient's decreased vision. LABORATORY DATA: White count 5100, hemoglobin 8.2, hematocrit 27, and platelet count is 96,000. Sodium 142, potassium 3.5, creatinine 1.07, BUN 17. ASSESSMENT: 1. Urinary tract infection with Proteus and ESBL E. coli. 2. Confusion secondary to #1, now resolved. 3. 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 The patient's anemia is likely related to deteriorating renal function, which however, is now improvi ng. We will check erythropoietin level and iron levels and initiate erythropoietin supplementation i n a.m. Dictated By: ROBYN CARDOZA MD SR/NTS Conf#: [id number] DID#: [id number] CC: SHERRI ROSS MD;*EndCC*
[2018-08-14] VITALS (9 sets, daily range): BP systolic 118–163; BP diastolic 57–82; PULSE 65–101; RESP 18–20
[2018-08-14] MEDS: LEVOTHYROXINE 100 MCG TAB PO SCH (06:07)
[2018-08-14] MEDS: ASPIRIN 81 MG TAB PO SCH (08:06)
[2018-08-14] MEDS: L ACIDOPHIL/B LACTIS/B LONGUM CAPSULE PO SCH ×2 (08:07→20:17)
[2018-08-14] MEDS: RALOXIFENE 60 MG TAB PO SCH (08:07)
[2018-08-14] MEDS: CYANOCOBALAMIN 500 MCG TAB PO SCH (08:07)
[2018-08-14] MEDS: MEROPENEM 500MG/50 ML (PMX) 50 ML IVPB SCH ×2 (08:07→21:42)
[2018-08-14] MEDS: NS + KCL 20 MEQ 1,000 ML IV SCH (11:05)
--- NOTE | 2018-08-14 12:58 | PN ---
DATE: 08/14/2018 SUBJECTIVE: The patient is more responsive today, less confused. PHYSICAL EXAMINATION: VITAL SIGNS: Temperature 97.6, blood pressure 131/66, O2 saturations 95% on 2 liters nasal cannula. CHEST EXAM: Revealed decreased breath sounds at bases. HEART: S1, S2 with no definite gallops. EXTREMITIES: No edema. IMPRESSION AND PLAN: 1. Encephalopathy secondary to urinary tract infection with Proteus, Escherichia coli, extended-spec trum beta-lactamase (ESBL). 2. Acute renal failure with prerenal azotemia, improved. 3. Right lung carcinoma (CA), in remission. 4. Coronary artery disease, status post anterior wall myocardial infarction, status post automatic i mplantable cardioverter-defibrillator (AICD). 5. History of meningioma, status post resection. 6. Seizure disorder. 7. Chronic obstructive pulmonary disease. Dilantin levels have been adjusted. We will continue int ravenous (IV) Merrem through 08/[address] Baltazar. Dictated By: SHERRI ROSS MD SR/NTS Conf#: [id number] DID#: [id number]
[2018-08-14] MEDS: ATORVASTATIN 10 MG TAB PO SCH (20:17)
[2018-08-14] MEDS: traZODone 50 MG TAB PO SCH (20:17)
[2018-08-14] MEDS: PHENYTOIN (100 MG/4 ML) CUP PO SCH (20:17)
[2018-08-15] VITALS (10 sets, daily range): BP systolic 127–158; BP diastolic 66–77; PULSE 64–102; RESP 16–19
[2018-08-15] MEDS: LEVOTHYROXINE 100 MCG TAB PO SCH (06:01)
[2018-08-15] MEDS: NS + KCL 20 MEQ 1,000 ML IV SCH (06:02)
--- NOTE | 2018-08-15 06:33 | CONS ---
Assessment/Plan Assessment/Plan Hospital Course (Demo Recall) 1) UTI due to proteus and e.coli+ESBL d/c ceftriaxone and start merrem continue merrem for 7 days (thru 08/17/18) renal u/s shows complex renal cyst but doubt it is infected 08/13 - doing well, no po antibiotic available to treat her UTI continue merrem thru 08/17 08/15 - stable on IV merrem (previous e.coli was resistant to bactrim, so not sure it would work here) continue merrem thru 08/17. end date for merrem put into computer I will sign off on case, thank you 2) ARF will order renal u/s to verify no obstruction or abscess some improvement since her admission creatinine was 0.87 in march 201808/12 - pt has medical renal ds noted on renal u/s slow improvement in creatinine 08/13 - creatinine has improved but not enough to increase her dose of merrem 08/15 - further improvement, continue present dosing of merrem 3) lung CA with marline mets to re-start chemo soon 4) CAD with AICD 5) hx of c.dif no current diarrhea, to start probiotic (change from lactobacillus to florajen3) 6) thrombocytopenia this is not new but current infection may be having an impact 7) COPD Consultation Date/Type/Reason Admit Date/Time Aug 07, 2018 at 23:26 Initial Consult Date 08/11/18 Type of Consult ID Date/Time of Note DATE: 08/15/18 TIME: 06:25 24 HR Interval Summary Free Text/Dictation pt denies N, V, D, SOB, dysphagia Exam/Review of Systems Exam Vitals Vital Signs Date Temp Pulse Resp B/P (MAP) Pulse Ox O2 O2 Flow FiO2 Time Delivery Rate 08/15/18 98.5 81 18 127/66 97 04:00 (86) 08/14/18 Nasal 2.0 21:00 Cannula Intake and Output 08/14/18 08/14/18 08/15/18 1515:00 23:00 07:00 IntakeIntake Total 375 ml 600 ml OutputOutput Total 800 ml BalanceBalance 375 ml -200 ml Constitutional: alert Eyes: nl sclera ENMT: mucosa pink and moist Respiratory: clear to auscultation Cardiovascular: regular rate and rhythm Gastrointestinal: soft, non-tender Results Result Diagram: 08/13/18 0609 08/13/18 0609 Medications Medication Current Medications Morphine Sulfate (morphine) 2 mg Q4H PRN IV Pain Last administered on 08/10/18 01:39; Admin Dose 2 MG; Start 08/08/18 at 06:30 Ondansetron HCl (Zofran Inj) 4 mg Q4H PRN IV NAUSEA AND/OR VOMITING; Start 08/08/18 at 06:30 Aspirin (Aspirin) 81 mg DAILY PO Last administered on 08/14/18 08:06; Admin Dose 81 MG; Start 08/08/18 at 09:00 Atorvastatin Calcium (Lipitor) 10 mg HS PO Last administered on 08/14/18 20:17; Admin Dose 10 MG; Start 08/08/18 at 21:00 Carvedilol (Coreg) 6.25 mg BID PO Last administered on 08/08/18 08:31; Admin Dose 6.25 MG; Start 08/08/18 at 09:00; Status Hold Cyanocobalamin (Vitamin B12) 500 mcg DAILY PO Last administered on 08/14/18 08:07; Admin Dose 500 MCG; Start 08/08/18 at 09:00 Levothyroxine Sodium (Synthroid) 100 mcg DAILY@06 PO Last administered on 08/15/18 06:01; Admin Dose 100 MCG; Start 08/08/18 at 07:00 Raloxifene HCl (Evista) 60 mg DAILY PO Last administered on 08/14/18 08:07; Admin Dose 60 MG; Start 08/08/18 at 09:00 Phenytoin (Dilantin Susp Cup) 125 mg TID PO Last administered on 08/12/18 21:33; Admin Dose 125 MG; Start 08/08/18 at 09:00; Status Hold Lorazepam (Ativan) 0.5 mg Q6H PRN IV AGITATION/ANXIETY; Start 08/10/18 at 01:00 Norepinephrine 250 ml @ 1.875 mls/ hr TITRATE IV Last administered on 08/10/18 05:08; Admin Dose 3.75 MLS/HR; Start 08/10/18 at 04:30 Meropenem/Sodium Chloride 50 ml @ 100 mls/hr Q12 IVPB Last administered on 08/14/18 21:42; Admin Dose 100 MLS/HR; Start 08/11/18 at 09:00 Lactobacillus Acidophilus (Florajen3 Capsule) 1 each BID PO Last administered on 08/14/18 20:17; Admin Dose 1 EACH; Start 08/11/18 at 09:00 Trazodone HCl (Desyrel) 50 mg HS PO Last administered on 08/14/18at 20:17; Admin Dose 50 MG; Start 08/13/18 at 21:00 Phenytoin (Dilantin Susp Cup) 100 mg TID PO Last administered on 08/14/18 20:17; Admin Dose 100 MG; Start 08/14/18 at 21:00 Potassium Chloride/Sodium Chloride 1,000 ml @ 50 mls/hr Q20H IV Last administered on 08/15/18 06:02; Admin Dose 50 MLS/HR; Start 08/13/18 at 15:30 NANDA GARDNER MD Aug 15, 2018 06:33
--- NOTE | 2018-08-15 08:09 | CONS ---
Assessment/Plan Assessment/Plan Assessment/Plan (Daily) UTI ARF CAD CArdiomyopathy AICD Lung CA COPD -on abx -continue cv meds -ID involved -recheck bp and increase meds if necessary 1) UTI due to proteus and e.coli+ESBL d/c ceftriaxone and start merrem continue merrem for 7 days (thru 08/17/18) renal u/s shows complex renal cyst but doubt it is infected 08/13 - doing well, no po antibiotic available to treat her UTI continue merrem thru 08/17 08/15 - stable on IV merrem (previous e.coli was resistant to bactrim, so not sure it would work here) continue merrem thru 08/17. end date for merrem put into computer I will sign off on case, thank you 2) ARF will order renal u/s to verify no obstruction or abscess some improvement since her admission creatinine was 0.87 in march 201808/12 - pt has medical renal ds noted on renal u/s slow improvement in creatinine 08/13 - creatinine has improved but not enough to increase her dose of merrem 08/15 - further improvement, continue present dosing of merrem 3) lung CA with marline mets to re-start chemo soon 4) CAD with AICD 5) hx of c.dif no current diarrhea, to start probiotic (change from lactobacillus to florajen3) 6) thrombocytopenia this is not new but current infection may be having an impact 7) COPD Consultation Date/Type/Reason Admit Date/Time Aug 07, 2018 at 23:26 Type of Consult Cardiology Date/Time of Note DATE: 08/15/18 TIME: 08:05 Hx of Present Illness The patient is an 88-year-old lady, well known to me from previous followup, status post prior meningioma resection, status post right lung cancer, respondi ng well to chemotherapy, presenting with severe headache which became progressive for the last week and also have some decreased responsiveness. The patient was evaluated in the emergency room and was admitted. She has a hx of CAD, AICD, cardiomyopathy currently not in any overt chf and stable form cardiac stanpoint Past Medical History Home Meds Active Scripts Levetiracetam* (Keppra*) 500 Mg Tablet, 500 MG PO BID for 30 Days, #60 TAB Prov:SHERRI ROSS MD 04/15/18 Amiodarone Hcl* (Amiodarone Hcl*) 200 Mg Tablet, 200 MG PO BID for 30 Days, #60 TAB Prov:SHERRI ROSS MD 04/15/18 Reported Medications Levothyroxine Sodium (Levothroid) 100 Mcg Tablet, 100 MCG PO QAM for 90 Days, #90 08/08/18 Lisinopril* (Lisinopril*) 10 Mg Tablet, 10 MG PO DAILY, #30 TAB 09/05/17 Atorvastatin Calcium (Atorvastatin Calcium) 10 Mg Tablet, 10 MG PO QHS, #30 TAB 09/05/17 Aspirin* (Aspirin* EC) 81 Mg Tablet.dr, 81 MG PO DAILY, TAB 09/05/17 Cyanocobalamin* (Vitamin B12*) 500 Mcg Tab, 1000 MCG PO DAILY, TAB 09/05/17 Lactobacillus Acidophilus (Probiotic) 1 Each Capsule, 1 CAP PO DAILY, CAP 09/05/17 Phenytoin* (Phenytoin*) 125 Mg/5 Ml Oral.susp, 3 ML PO TID for 30 Days, BOTTLE 09/05/17 Omeprazole* (Omeprazole*) 20 Mg Capsule.dr, 20 MG PO DAILY, #30 CAP 09/05/17 Trazodone Hcl* (Trazodone Hcl*) 50 Mg Tablet, 50 MG PO TID, #90 TAB 09/05/17 Raloxifene Hcl* (Evista*) 60 Mg Tablet, 60 MG PO DAILY, TAB 09/05/17 Carvedilol* (Carvedilol*) 6.25 Mg Tablet, 6.25 MG PO BID, #60 TAB 09/05/17 Melatonin (Melatonin) 3 Mg Tablet.sa, 3 MG PO HS, TAB.SA 09/05/17 Furosemide* (Furosemide*) 20 Mg Tablet, 20 MG PO DAILY, #60 TAB 09/05/17 Discontinued Scripts Levothyroxine Sodium* (Levothyroxine Sodium*) 50 Mcg Tablet, 50 MCG PO DAILY@06 for 30 Days, #30 TAB Prov:SHERRI ROSS MD 04/15/18 Medications Current Medications Morphine Sulfate (morphine) 2 mg Q4H PRN IV Pain Last administered on 08/10/18at 01:39; Admin Dose 2 MG; Start 08/08/18 at 06:30 Ondansetron HCl (Zofran Inj) 4 mg Q4H PRN IV NAUSEA AND/OR VOMITING; Start 08/08/18 at 06:30 Aspirin (Aspirin) 81 mg DAILY PO Last administered on 08/14/18 08:06; Admin Dose 81 MG; Start 08/08/18 at 09:00 Atorvastatin Calcium (Lipitor) 10 mg HS PO Last administered on 08/14/18 20:17; Admin Dose 10 MG; Start 08/08/18 at 21:00 Carvedilol (Coreg) 6.25 mg BID PO Last administered on 08/08/18 08:31; Admin Dose 6.25 MG; Start 08/08/18 at 09:00; Status Hold Cyanocobalamin (Vitamin B12) 500 mcg DAILY PO Last administered on 08/14/18 08:07; Admin Dose 500 MCG; Start 08/08/18 at 09:00 Levothyroxine Sodium (Synthroid) 100 mcg DAILY@06 PO Last administered on 08/15/18 06:01; Admin Dose 100 MCG; Start 08/08/18 at 07:00 Raloxifene HCl (Evista) 60 mg DAILY PO Last administered on 08/14/18 08:07; Admin Dose 60 MG; Start 08/08/18 at 09:00 Phenytoin (Dilantin Susp Cup) 125 mg TID PO Last administered on 08/12/18 21:33; Admin Dose 125 MG; Start 08/08/18 at 09:00; Status Hold Lorazepam (Ativan) 0.5 mg Q6H PRN IV AGITATION/ANXIETY; Start 08/10/18 at 01:00 Norepinephrine 250 ml @ 1.875 mls/ hr TITRATE IV Last administered on 08/10/18 05:08; Admin Dose 3.75 MLS/HR; Start 08/10/18 at 04:30 Meropenem/Sodium Chloride 50 ml @ 100 mls/hr Q12 IVPB Last administered on 08/14/18 21:42; Admin Dose 100 MLS/HR; Start 08/11/18 at 09:00; Stop 08/18/18 at 03:00 Lactobacillus Acidophilus (Florajen3 Capsule) 1 each BID PO Last administered on 08/14/18 20:17; Admin Dose 1 EACH; Start 08/11/18 at 09:00 Trazodone HCl (Desyrel) 50 mg HS PO Last administered on 4/18/19at 20:17; Admin Dose 50 MG; Start 08/13/18 at 21:00 Phenytoin (Dilantin Susp Cup) 100 mg TID PO Last administered on 08/14/18at 20:17; Admin Dose 100 MG; Start 08/14/18 at 21:00 Potassium Chloride/Sodium Chloride 1,000 ml @ 50 mls/hr Q20H IV Last administered on 08/15/18at 06:02; Admin Dose 50 MLS/HR; Start 08/13/18 at 15:30 Allergies: Coded Allergies: No Known Drug Allergies (Verified Allergy, Mild, 04/05/18) Social History Smoking Status: Former smoker Exam/Review of Systems Vital Signs Vitals Vital Signs Date Temp Pulse Resp B/P (MAP) Pulse Ox O2 O2 Flow FiO2 Time Delivery Rate 08/15/18 Nasal 2.0 07:53 Cannula 08/15/18 98.3 64 16 155/77 91 07:34 (103) Intake and Output 08/14/18 08/14/18 08/15/18 1515:00 23:00 07:00 IntakeIntake Total 375 ml 600 ml 1350 ml OutputOutput Total 800 ml 750 ml BalanceBalance 375 ml -200 ml 600 ml Labs Result Diagram: 08/15/18 0606 08/13/18 0609 Results 24hrs Laboratory Tests Test 08/15/18 06:06 White Blood Count 6.2 # Red Blood Count 2.96 L Hemoglobin 9.1 L Hematocrit 28.4 L Mean Corpuscular Volume 95.9 Mean Corpuscular Hemoglobin 30.7 Mean Corpuscular Hemoglobin Concent 32.0 Red Cell Distribution Width 16.3 H Platelet Count 85 L Mean Platelet Volume 12.6 H Immature Granulocytes % 0.600 H Neutrophils % 58.5 Lymphocytes % 28.6 Monocytes % 8.8 Eosinophils % 3.0 Basophils % 0.5 Nucleated Red Blood Cells % 0.0 Immature Granulocytes # 0.040 H Neutrophils # 3.6 Lymphocytes # 1.8 Monocytes # 0.6 Eosinophils # 0.2 Basophils # 0.0 Nucleated Red Blood Cells # 0.0 Absolute Reticulocyte Count 0.061 Percent Reticulocyte Count 2.1 H Medications Medications Current Medications Morphine Sulfate (morphine) 2 mg Q4H PRN IV Pain Last administered on 08/10/18at 01:39; Admin Dose 2 MG; Start 08/08/18 at 06:30 Ondansetron HCl (Zofran Inj) 4 mg Q4H PRN IV NAUSEA AND/OR VOMITING; Start 08/08/18 at 06:30 Aspirin (Aspirin) 81 mg DAILY PO Last administered on 08/14/18 08:06; Admin Dose 81 MG; Start 08/08/18 at 09:00 Atorvastatin Calcium (Lipitor) 10 mg HS PO Last administered on 08/14/18 20:17; Admin Dose 10 MG; Start 08/08/18 at 21:00 Carvedilol (Coreg) 6.25 mg BID PO Last administered on 08/08/18 08:31; Admin Dose 6.25 MG; Start 08/08/18 at 09:00; Status Hold Cyanocobalamin (Vitamin B12) 500 mcg DAILY PO Last administered on 08/14/18 08:07; Admin Dose 500 MCG; Start 08/08/18 at 09:00 Levothyroxine Sodium (Synthroid) 100 mcg DAILY@06 PO Last administered on 08/15/18 06:01; Admin Dose 100 MCG; Start 08/08/18 at 07:00 Raloxifene HCl (Evista) 60 mg DAILY PO Last administered on 08/14/18 08:07; Admin Dose 60 MG; Start 08/08/18 at 09:00 Phenytoin (Dilantin Susp Cup) 125 mg TID PO Last administered on 08/12/18 21:33; Admin Dose 125 MG; Start 08/08/18 at 09:00; Status Hold Lorazepam (Ativan) 0.5 mg Q6H PRN IV AGITATION/ANXIETY; Start 08/10/18 at 01:00 Norepinephrine 250 ml @ 1.875 mls/ hr TITRATE IV Last administered on 08/10/18 05:08; Admin Dose 3.75 MLS/HR; Start 08/10/18 at 04:30 Meropenem/Sodium Chloride 50 ml @ 100 mls/hr Q12 IVPB Last administered on 08/14/18 21:42; Admin Dose 100 MLS/HR; Start 08/11/18 at 09:00; Stop 08/18/18 at 03:00 Lactobacillus Acidophilus (Florajen3 Capsule) 1 each BID PO Last administered on 08/14/18 20:17; Admin Dose 1 EACH; Start 08/11/18 at 09:00 Trazodone HCl (Desyrel) 50 mg HS PO Last administered on 08/14/18at 20:17; Admin Dose 50 MG; Start 08/13/18 at 21:00 Phenytoin (Dilantin Susp Cup) 100 mg TID PO Last administered on 08/14/18at 20:17; Admin Dose 100 MG; Start 08/14/18 at 21:00 Potassium Chloride/Sodium Chloride 1,000 ml @ 50 mls/hr Q20H IV Last administered on 08/15/18at 06:02; Admin Dose 50 MLS/HR; Start 08/13/18 at 15:30 FLAVIO GILMORE MD Aug 15, 2018 08:09
--- NOTE | 2018-08-15 08:10 | PN ---
DATE: 08/15/2018 SUBJECTIVE: The patient states she is feeling well. No complaints of headaches, no complaints of ch est pain, no cough or shortness of breath. Appetite is excellent. OBJECTIVE: GENERAL: The patient is a well-developed, well-nourished female, in no acute distress. VITAL SIGNS: Temperature 98.3, pulse 64 per minute and regular, respirations 16, blood pressure 155/ 77, pulse oximetry 91% on 2 liters by nasal cannula. SKIN: No ecchymosis, no petechiae or rashes but pale. HEENT: Normocephalic. No evidence of trauma. Pupils are equal, round, react to light and accommoda tion. Sclerae nonicteric. Oral mucosa is moist without lesions. Tongue is well papillated. There is pallor of the oral mucosa and conjunctiva. There is also decreased visual acuity. NECK: Supple. No jugular venous distention or thyroid enlargement. No carotid bruits. CHEST: Clear to auscultation and percussion. No rhonchi, wheezes, rales or rubs. There is no pain on percussion of spine, sternum, clavicles or ribs. There is a port in the right anterior chest wall , which has been accessed and with IVs infusing. HEART: Regular sinus rhythm, no S3, S4 or murmurs. No rubs. ABDOMEN: Soft, no masses, no ascites. EXTREMITIES: No clubbing. No edema or cyanosis. No palpable cords or Homans sign. NEUROLOGIC: Normal other than the patient's decreased visual acuity. LABORATORY DATA: White count 6200 with an absolute neutrophil count of 3600, hemoglobin was 9.1, hem atocrit 28.4 and platelet count 85,000. The absolute reticulocyte count is 61,000 with reticulocyte of 2.1%. ASSESSMENT: 1. Urinary tract infection secondary to Proteus and ESBL E. coli. 2. Confusion secondary to #1, now resolved. 3. 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 PLAN: The patient is stable. She is no longer febrile and the mental status changes noted on admiss ion to have resolved with treatment as the patient has been treated for urinary tract infection. The patient is to receive meropenem through 08/17/2018. Then, will likely return to her [facility] facility. The patient has had an excellent response to Tecentriq. We will resume therapy as an outpatient. I do not feel any of the patient's complaints on admission were related to this medication. Dictated By: ROBYN CARDOZA MD SR/NTS Conf#: [id number] DID#: [id number] CC: SHERRI ROSS MD;*End*
[2018-08-15] MEDS: MEROPENEM 500MG/50 ML (PMX) 50 ML IVPB SCH ×2 (08:44→22:23)
[2018-08-15] MEDS: CYANOCOBALAMIN 500 MCG TAB PO SCH (08:45)
[2018-08-15] MEDS: L ACIDOPHIL/B LACTIS/B LONGUM CAPSULE PO SCH ×2 (08:45→20:24)
[2018-08-15] MEDS: ASPIRIN 81 MG TAB PO SCH (08:45)
[2018-08-15] MEDS: PHENYTOIN (100 MG/4 ML) CUP PO SCH ×3 (08:45→20:24)
[2018-08-15] MEDS: RALOXIFENE 60 MG TAB PO SCH (08:45)
--- NOTE | 2018-08-15 14:23 | PN ---
DATE: 08/15/2018 SUBJECTIVE: The patient is overall comfortable, denies any chest pain or shortness of breath. Nurse s noted protuberant swelling through the rectum in the morning today. The patient denies any rectal pain or rectal bleeding. OBJECTIVE: VITAL SIGNS: Temperature 98.7, blood pressure 140/66, O2 saturation 97% on 2 liters nasal cannula. CHEST: Revealed decreased breath sounds at bases. HEART: S1, S2 heard, no definite gallops. EXTREMITIES: No edema. Wasting of the lower extremities. External hemorrhoids noted. Do not see a ny prolapse of the rectum at this time or internal hemorrhoids. IMPRESSION: 1. Delirium secondary to urinary tract infection, Proteus ESBL Escherichia coli. 2. Nonsmall cell CA of the right lung, in remission. 3. Coronary artery disease, status post myocardial infarction, status post automatic implantable car dioverter-defibrillator. 4. History of meningioma status post resection. 5. Seizure disorder. 6. Chronic obstructive pulmonary disease. PLAN: Will continue intravenous Merrem and then consider discharge on Saturday. Dictated By: SHERRI ROSS MD SR/NTS Conf#: [id number] DID#: [id number]
[2018-08-15] MEDS: traZODone 50 MG TAB PO SCH (20:24)
[2018-08-15] MEDS: ATORVASTATIN 10 MG TAB PO SCH (20:25)
[2018-08-16] VITALS (11 sets, daily range): BP systolic 119–154; BP diastolic 65–81; PULSE 72–107; RESP 18–22
[2018-08-16] MEDS: NS + KCL 20 MEQ 1,000 ML IV SCH (03:56)
[2018-08-16] MEDS: LEVOTHYROXINE 100 MCG TAB PO SCH (06:34)
[2018-08-16] MEDS: L ACIDOPHIL/B LACTIS/B LONGUM CAPSULE PO SCH ×2 (09:21→20:53)
[2018-08-16] MEDS: MEROPENEM 500MG/50 ML (PMX) 50 ML IVPB SCH ×2 (09:21→20:52)
[2018-08-16] MEDS: RALOXIFENE 60 MG TAB PO SCH (09:21)
[2018-08-16] MEDS: CYANOCOBALAMIN 500 MCG TAB PO SCH (09:21)
[2018-08-16] MEDS: ASPIRIN 81 MG TAB PO SCH (09:21)
[2018-08-16] MEDS: PHENYTOIN (100 MG/4 ML) CUP PO SCH ×3 (10:59→20:53)
[2018-08-16] MEDS: ATORVASTATIN 10 MG TAB PO SCH (20:52)
[2018-08-16] MEDS: traZODone 50 MG TAB PO SCH (20:53)
--- NOTE | 2018-08-16 20:57 | PN ---
DATE: 08/16/2018 SUBJECTIVE: The patient is awake, and alert, not confused. PHYSICAL EXAMINATION: VITAL SIGNS: Temperature 98.0, blood pressure 121/79, O2 sat 98% on 2 liters nasal cannula. JVD is not increased. CHEST: Decreased breath sounds at the bases. HEART: S1, S2 heard, no definite gallops. The patient has not had any seizures recently. IMPRESSION: 1. Delirium secondary to urinary tract infection, Proteus, ESBL Escherichia coli, improving. 2. Non-small cell CA of the right lung, in remission. 3. Coronary artery disease, status post MD, status post automatic implantable cardioverter-defibrill ator. 4. History of meningioma status post resection. 5. Seizure disorder, well controlled. 6. Chronic obstructive pulmonary disease. PLAN: We will continue intravenous Merrem and she remained stable, we will discharge her on Saturday08/18/2018. Dictated By: SHERRI ROSS MD SR/NTS Conf#: [id number] DID#: [id number] CC: SHERRI ROSS MD;*EndCC*
[2018-08-17] VITALS (11 sets, daily range): BP systolic 129–152; BP diastolic 64–79; PULSE 77–106; RESP 18–20
[2018-08-17] MEDS: NS + KCL 20 MEQ 1,000 ML IV SCH ×2 (01:09→21:16)
[2018-08-17] MEDS: LEVOTHYROXINE 100 MCG TAB PO SCH (05:13)
[2018-08-17] MEDS: MEROPENEM 500MG/50 ML (PMX) 50 ML IVPB SCH ×2 (08:53→21:28)
[2018-08-17] MEDS: ASPIRIN 81 MG TAB PO SCH (08:53)
[2018-08-17] MEDS: CYANOCOBALAMIN 500 MCG TAB PO SCH (08:53)
[2018-08-17] MEDS: RALOXIFENE 60 MG TAB PO SCH (08:53)
[2018-08-17] MEDS: PHENYTOIN (100 MG/4 ML) CUP PO SCH ×3 (08:53→21:16)
[2018-08-17] MEDS: L ACIDOPHIL/B LACTIS/B LONGUM CAPSULE PO SCH ×2 (08:53→21:16)
--- NOTE | 2018-08-17 16:48 | PN ---
DATE: 08/17/2018 SUBJECTIVE: The patient is awake, alert, confused today. PHYSICAL EXAMINATION: VITAL SIGNS: Temperature 98.5, blood pressure 146/64, O2 saturation 99% on room air. GENERAL: No seizures. CHEST: Decreased breath sounds at bases. HEART: S1, S2 heard. No definite gallops. EXTREMITIES: No edema. IMPRESSION: 1. Delirium secondary to urinary tract infection, resolving well. 2. 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 3. Coronary artery disease, status post myocardial infarction, status post AICD. 4. History of meningioma, status post resection. 5. Seizure disorder, well controlled. 6. Chronic obstructive pulmonary disease. 7. Borderline potassium. PLAN: Recheck potassium and magnesium level today. If the patient remains stable, we will discharge the patient tomorrow. Dictated By: SHERRI ROSS MD, SR/LAYNE Conf#: [id number] DID#: [id number]
[2018-08-17] MEDS: ATORVASTATIN 10 MG TAB PO SCH (21:16)
[2018-08-17] MEDS: traZODone 50 MG TAB PO SCH (21:16)
[2018-08-18] VITALS (10 sets, daily range): BP systolic 129–139; BP diastolic 62–74; PULSE 73–99; RESP 16–20
[2018-08-18] MEDS: LEVOTHYROXINE 100 MCG TAB PO SCH (06:10)
[2018-08-18] MEDS: ASPIRIN 81 MG TAB PO SCH (08:34)
[2018-08-18] MEDS: RALOXIFENE 60 MG TAB PO SCH (08:34)
[2018-08-18] MEDS: PHENYTOIN (100 MG/4 ML) CUP PO SCH ×3 (08:34→23:08)
[2018-08-18] MEDS: L ACIDOPHIL/B LACTIS/B LONGUM CAPSULE PO SCH ×2 (08:35→23:08)
[2018-08-18] MEDS: CYANOCOBALAMIN 500 MCG TAB PO SCH (08:35)
[2018-08-18] MEDS ORDERED: MAGNESIUM SULFATE 2 GM/50 ML 50 ML IVPB ONE (09:30)
--- NOTE | 2018-08-18 13:21 | CONS ---
Assessment/Plan Assessment/Plan Hospital Course (Demo Recall) UTI ARF CAD Cardiomyopathy AICD Lung CA COPD -Blood pressure trend overall stable, restart beta-adriana and RAFAEL inhibitor as tolerated -Magnesium supplementation has orally been ordered -Chest x-ray for the a.m. Consultation Date/Type/Reason Admit Date/Time Aug 07, 2018 at 23:26 Initial Consult Date 08/11/18 Type of Consult Cardiology Date/Time of Note DATE: 08/18/18 TIME: 13:17 24 HR Interval Summary Free Text/Dictation Denies palpitations, chest pain Exam/Review of Systems Vital Signs Vitals Vital Signs Date Temp Pulse Resp B/P (MAP) Pulse Ox O2 O2 Flow FiO2 Time Delivery Rate 08/18/18 98.0 87 18 133/62 98 12:00 (85) 08/18/18 Nasal 2.0 08:15 Cannula Intake and Output 08/17/18 08/17/18 08/18/18 1414:59 22:59 06:59 IntakeIntake Total 500 ml 600 ml 750 ml OutputOutput Total 1100 ml 1100 ml BalanceBalance 500 ml -500 ml -350 ml Exam Exam Awake and alert, confused at times, no apparent distress Constitutional: frail Head: normocephalic Respiratory: other (Coarse breath sounds bilaterally, no wheezing) Cardiovascular: regular rate and rhythm, other (S1-S2 heard) Gastrointestinal: soft, non-tender, bowel sounds Extremities: edema (Trace) Labs Result Diagram: 08/17/18 1740 08/17/18 1740 Results 24hrs Laboratory Tests Test 08/17/18 17:40 White Blood Count 6.9 Red Blood Count 3.13 L Hemoglobin 9.7 L Hematocrit 30.3 L Mean Corpuscular Volume 96.8 Mean Corpuscular Hemoglobin 31.0 Mean Corpuscular Hemoglobin Concent 32.0 Red Cell Distribution Width 16.8 H Platelet Count 82 L Mean Platelet Volume 11.5 H Immature Granulocytes % 0.900 H Neutrophils % 59.3 Lymphocytes % 27.7 Monocytes % 8.3 Eosinophils % 3.1 Basophils % 0.7 Nucleated Red Blood Cells % 0.3 H Immature Granulocytes # 0.060 H Neutrophils # 4.1 Lymphocytes # 1.9 Monocytes # 0.6 Eosinophils # 0.2 Basophils # 0.1 Nucleated Red Blood Cells # 0.0 Sodium Level 138 Potassium Level 5.1 Chloride Level 106 Carbon Dioxide Level 23 Anion Gap 9 Blood Urea Nitrogen 25 H Creatinine 0.75 Est Glomerular Filtrat Rate mL/min Glucose Level 78 Calcium Level 8.9 Magnesium Level 1.7 Medications Medications Current Medications Morphine Sulfate (morphine) 2 mg Q4H PRN IV Pain Last administered on 08/10/18 01:39; Admin Dose 2 MG; Start 08/08/18 at 06:30 Ondansetron HCl (Zofran Inj) 4 mg Q4H PRN IV NAUSEA AND/OR VOMITING; Start 08/08/18 at 06:30 Aspirin (Aspirin) 81 mg DAILY PO Last administered on 08/18/18 08:34; Admin Dose 81 MG; Start 08/08/18 at 09:00 Atorvastatin Calcium (Lipitor) 10 mg HS PO Last administered on 08/17/18 21:16; Admin Dose 10 MG; Start 08/08/18 at 21:00 Carvedilol (Coreg) 6.25 mg BID PO Last administered on 08/08/18 08:31; Admin Dose 6.25 MG; Start 08/08/18 at 09:00; Status Hold Cyanocobalamin (Vitamin B12) 500 mcg DAILY PO Last administered on 08/18/18 08:35; Admin Dose 500 MCG; Start 08/08/18 at 09:00 Levothyroxine Sodium (Synthroid) 100 mcg DAILY@06 PO Last administered on 08/18/18 06:10; Admin Dose 100 MCG; Start 08/08/18 at 07:00 Raloxifene HCl (Evista) 60 mg DAILY PO Last administered on 08/18/18 08:34; Admin Dose 60 MG; Start 08/08/18 at 09:00 Phenytoin (Dilantin Susp Cup) 125 mg TID PO Last administered on 08/12/18 21:33; Admin Dose 125 MG; Start 08/08/18 at 09:00; Status Hold Lorazepam (Ativan) 0.5 mg Q6H PRN IV AGITATION/ANXIETY; Start 08/10/18 at 01:00 Lactobacillus Acidophilus (Florajen3 Capsule) 1 each BID PO Last administered on 08/18/18 08:35; Admin Dose 1 EACH; Start 08/11/18 at 09:00 Trazodone HCl (Desyrel) 50 mg HS PO Last administered on 4/21/19at 21:16; Admin Dose 50 MG; Start 08/13/18 at 21:00 Phenytoin (Dilantin Susp Cup) 100 mg TID PO Last administered on 08/18/18at 12:13; Admin Dose 100 MG; Start 08/14/18 at 21:00 Carlos Haskins DO Aug 18, 2018 13:21
--- NOTE | 2018-08-18 14:33 | PN ---
DATE: 08/18/2018 SUBJECTIVE: The patient overall feels well. Has some congested cough. Denies any chest pains. PHYSICAL EXAMINATION: GENERAL: The patient is awake, alert. VITAL SIGNS: Temperature 98, blood pressure 130/62. CHEST: Reveals decreased breath sounds at bases. Occasional crackles. HEART: S1, S2 with no definite gallops. EXTREMITIES: No edema. INPUT AND OUTPUT: 750 in and 1100 out. LABORATORY: From last evening, WBC 6.9, hematocrit 30.9. Magnesium 1.7, potassium 5.1. IMPRESSION: 1. Delirium secondary to urinary tract infection, resolving well. The patient finished Merrem. 2. 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 3. Coronary artery disease, status post myocardial infarction. 4. History of meningioma, status post resection. 5. Seizure disorder. 6. Chronic obstructive pulmonary disease. 7. Recent cough and shortness of breath. Case was discussed with Dr. Haksins who ordered x-ray and if she remains stable, we will consider disc harge soon. Dictated By: SHERRI ROSS MD, SR/NTS Conf#: [id number] DID#: [id number]
--- NOTE | 2018-08-18 17:02 | PN ---
DATE: 08/18/2018 SUBJECTIVE: The patient states she is feeling well and is anxious to go home. Has no complaints of chest pain, no shortness of breath, no cough. OBJECTIVE: GENERAL: The patient is a well-developed, well-nourished female in no acute distress. VITAL SIGNS: Temperature 98 orally, pulse 85 per minute and regular, respirations 18, blood pressure 138/70, pulse oximetry 98% on 2 liters of oxygen by nasal cannula. SKIN: No ecchymosis, no petechiae or rashes. HEENT: Normocephalic. No evidence of trauma. Pupils are equal, round, react to light and accommoda tion. Sclerae nonicteric. Oral mucosa is moist without lesions. Visual acuity is decreased. There is nasal oxygen in place. NECK: Supple, no jugular venous distention or thyroid enlargement. No carotid bruits. CHEST: Clear to auscultation and percussion. No rhonchi, wheezes, rales or rubs. There is a port p resent in the right anterior chest, which has been accessed. HEART: Regular sinus rhythm, no S3, S4 or murmurs. No rubs. ABDOMEN: Soft, no masses, no ascites. EXTREMITIES: Good range of motion, no clubbing, edema or cyanosis. No palpable cords or Homans sign . GENITOURINARY: There is a Woodall catheter in place draining clear pale yellow urine. NEUROLOGIC: Normal except for the patient's decreased visual acuity. LABORATORY: No new chemistries or CBC done today. ASSESSMENT: 1. Urinary tract infection secondary to Proteus and extended spectrum beta-lactamase Escherichia col i. 2. Confusion secondary to #1, resolved. 3. 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 DISCUSSION: The patient has now completed meropenem. She is afebrile. She is likely to be discharged back to her board and care in the a.m. Following that, we will make f urther plans, about continuing patient on Tecentriq. Dictated By: ROBYN CARDOZA MD SR/NTS Conf#: [id number] DID#: [id number]
[2018-08-18] MEDS: traZODone 50 MG TAB PO SCH (23:07)
[2018-08-18] MEDS: ATORVASTATIN 10 MG TAB PO SCH (23:08)
[2018-08-18] MEDS: LISINOPRIL 5 MG TAB PO SCH (23:14)
[2018-08-19] VITALS (7 sets, daily range): BP systolic 122–135; BP diastolic 58–72; PULSE 68–90; RESP 18
[2018-08-19] MEDS: LEVOTHYROXINE 100 MCG TAB PO SCH (06:26)
[2018-08-19] MEDS: L ACIDOPHIL/B LACTIS/B LONGUM CAPSULE PO SCH (08:39)
[2018-08-19] MEDS: LISINOPRIL 5 MG TAB PO SCH (08:40)
[2018-08-19] MEDS: RALOXIFENE 60 MG TAB PO SCH (08:40)
[2018-08-19] MEDS: CYANOCOBALAMIN 500 MCG TAB PO SCH (08:40)
[2018-08-19] MEDS: ASPIRIN 81 MG TAB PO SCH (08:41)
[2018-08-19] MEDS: PHENYTOIN (100 MG/4 ML) CUP PO SCH ×2 (08:41→12:39)
--- NOTE | 2018-08-19 13:09 | CONS ---
Assessment/Plan Cardiology NYHA: III Heart Failure Type: Chronic Heart Failure Type: Systolic Assessment/Plan Hospital Course (Demo Recall) UTI ARF CAD Cardiomyopathy AICD Lung CA COPD -Blood pressure trend overall stable, increased dose of beta-adriana and RAFAEL inhibitor as renal function blood pressure permits -Chest x-ray with mild pulmonary vascular congestion, would restart home dose of Lasix -DC planning Consultation Date/Type/Reason Admit Date/Time Aug 07, 2018 at 23:26 Initial Consult Date 08/11/18 Type of Consult Cardiology Date/Time of Note DATE: 08/19/18 TIME: 13:06 24 HR Interval Summary Free Text/Dictation Shortness of breath is better today. Denies cough Exam/Review of Systems Vital Signs Vitals Vital Signs Date Temp Pulse Resp B/P (MAP) Pulse Ox O2 O2 Flow FiO2 Time Delivery Rate 08/19/18 68 12:01 08/19/18 97.9 18 129/70 98 12:01 (89) 08/19/18 Nasal 2.0 07:41 Cannula Intake and Output 08/18/18 08/18/18 08/19/18 1515:00 23:00 07:00 IntakeIntake Total 400 ml 650 ml OutputOutput Total 1000 ml BalanceBalance 400 ml -350 ml Exam Constitutional: alert (No apparent distress), frail Head: normocephalic Respiratory: other (Coarse breath sounds bilaterally, no wheezing) Cardiovascular: regular rate and rhythm (S1-S2 heard) Gastrointestinal: soft, non-tender, bowel sounds Extremities: other (No significant edema) Labs Result Diagram: 08/19/18 0601 08/17/18 1740 Results 24hrs Laboratory Tests Test 08/18/18 17:51 08/19/18 06:01 Absolute Reticulocyte Count 0.088 Percent Reticulocyte Count 3.0 H White Blood Count 6.4 Red Blood Count 3.01 L Hemoglobin 9.4 L Hematocrit 29.3 L Mean Corpuscular Volume 97.3 Mean Corpuscular Hemoglobin 31.2 Mean Corpuscular Hemoglobin Concent 32.1 Red Cell Distribution Width 16.7 H Platelet Count 66 L Mean Platelet Volume 11.7 H Immature Granulocytes % 0.800 H Neutrophils % 46.1 Lymphocytes % 40.1 Monocytes % 8.8 Eosinophils % 3.6 Basophils % 0.6 Nucleated Red Blood Cells % 0.0 Immature Granulocytes # 0.050 H Neutrophils # 2.9 Lymphocytes # 2.6 Monocytes # 0.6 Eosinophils # 0.2 Basophils # 0.0 Nucleated Red Blood Cells # 0.0 Medications Medications Current Medications Aspirin (Aspirin) 81 mg DAILY PO Last administered on 08/19/18 08:41; Admin Dose 81 MG; Start 08/08/18 at 09:00 Atorvastatin Calcium (Lipitor) 10 mg HS PO Last administered on 08/18/18 23:08; Admin Dose 10 MG; Start 08/08/18 at 21:00 Cyanocobalamin (Vitamin B12) 500 mcg DAILY PO Last administered on 08/19/18 08:40; Admin Dose 500 MCG; Start 08/08/18 at 09:00 Levothyroxine Sodium (Synthroid) 100 mcg DAILY@06 PO Last administered on 08/19/18 06:26; Admin Dose 100 MCG; Start 08/08/18 at 07:00 Raloxifene HCl (Evista) 60 mg DAILY PO Last administered on 08/19/18 08:40; Admin Dose 60 MG; Start 08/08/18 at 09:00 Lactobacillus Acidophilus (Florajen3 Capsule) 1 each BID PO Last administered on 08/19/18 08:39; Admin Dose 1 EACH; Start 08/11/18 at 09:00 Trazodone HCl (Desyrel) 50 mg HS PO Last administered on 08/18/18 23:07; Admin Dose 50 MG; Start 08/13/18 at 21:00 Phenytoin (Dilantin Susp Cup) 100 mg TID PO Last administered on 08/19/18 12:39; Admin Dose 100 MG; Start 08/14/18 at 21:00 Carvedilol (Coreg) 3.125 mg BID PO Last administered on 08/19/18 08:41; Admin Dose 3.125 MG; Start 08/18/18 at 21:00 Lisinopril (Zestril) 2.5 mg BID PO Last administered on 08/19/18 08:40; Admin Dose 2.5 MG; Start 08/18/18 at 21:00 Carlos Haskins DO Aug 19, 2018 13:09
[2018-08-19] MEDS ORDERED: traZODone PO (13:23)
[2018-08-19] MEDS ORDERED: FUROSEMIDE 20 MG TAB PO SCH (13:30)
--- NOTE | 2018-08-19 17:35 | DS ---
DATE OF ADMISSION: 08/07/2018 DATE OF DISCHARGE: 08/19/2018 FINAL DIAGNOSES: 1. Delirium secondary to urinary tract infection, resolving well, status post course of Merrem. 2. 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 3. Coronary artery disease, status post prior anterior wall myocardial infarction, status post AICD placement. 4. History of meningioma, status post resection. 5. Seizure disorder. 6. Chronic obstructive pulmonary disease. 7. Peripheral arterial disease. HOSPITAL COURSE: The patient is an 88-year-old lady, well known to me from previous followup, status post prior meningioma resection, status post right lung cancer, presenting with severe headache whic h has become progressive with decreased responsiveness. The patient was evaluated in the emergency r oom and was admitted. The patient had CT scan of the brain which showed no acute intracranial findin gs, status post parasagittal calcified meningioma. BUN was 51, creatinine 2.01. The patient was fou nd to be dehydrated. The patient was hydrated and was begun on a course of ceftriaxone. The patient was seen by Dr. Tito Baltazar and was found to have urinary tract infection with Proteus and E. coli with ESBL. Antibiotics were switched to Merrem from ceftriaxone. The patient gradually improved. The p atient was seen by Dr. Nunez from oncology standpoint who will make further plans regarding continu ing the patient on . The patient was also seen by Dr. Haskins from cardiac standpoint, who recom mended continuing diuretics as the patient had mild pulmonary vascular congestion. The patient had s ignificantly improved and was discharged home to board and care in much improved condition and the luis kovacs will be followed in my office over the course of next week. Dictated By: SHERRI ROSS MD SR/NTS Conf#: [id number] DID#: [id number]
== END 2018-08-19 15:10 | disposition home or self-care (01) | DRG 690 ==
LOC: E/R 20:56 → TEL 23:26 → 6WM 08-08 17:50 → ICU 08-10 04:24 → TEL 08-11 17:05
PROVIDERS: ADMIT Internal Medicine; ATTEND Internal Medicine
DX: N39.0 Urinary tract infection, site not specified (principal); R64 Cachexia; C34.91 Malignant neoplasm of unspecified part of right bronchus or lung; N17.9 Acute kidney failure, unspecified; C79.51 Secondary malignant neoplasm of bone; Z68.1 Body mass index [BMI] 19.9 or less, adult; G93.49 Other encephalopathy; I42.9 Cardiomyopathy, unspecified; R51 Headache; D32.0 Benign neoplasm of cerebral meninges; I25.10 Atherosclerotic heart disease of native coronary artery without angina pectoris; I25.2 Old myocardial infarction; Z95.810 Presence of automatic (implantable) cardiac defibrillator; R00.1 Bradycardia, unspecified; E87.5 Hyperkalemia; E86.0 Dehydration; H54.8 Legal blindness, as defined in USA; J44.9 Chronic obstructive pulmonary disease, unspecified; E03.9 Hypothyroidism, unspecified; Z98.51 Tubal ligation status; G40.909 Epilepsy, unspecified, not intractable, without status epilepticus; Z86.73 Personal history of transient ischemic attack (TIA), and cerebral infarction without residual deficits; I95.9 Hypotension, unspecified; D69.6 Thrombocytopenia, unspecified; Z86.018 Personal history of other benign neoplasm; Z98.890 Other specified postprocedural states; Z79.899 Other long term (current) drug therapy; B96.4 Proteus (mirabilis) (morganii) as the cause of diseases classified elsewhere; B96.20 Unspecified Escherichia coli [E. coli] as the cause of diseases classified elsewhere; I73.9 Peripheral vascular disease, unspecified; Z95.5 Presence of coronary angioplasty implant and graft; Z87.891 Personal history of nicotine dependence; E86.1 Hypovolemia; R63.6 Underweight
CPT/HCPCS: 36415; 70450; 71045; 76775; 80048; 80053; 80185; 81001; 82668; 82728; 82962; 83540; 83735; 84100; 84484; 85025; 85045; 85610; 85730; 86850; 86900; 86901; 87081; 87086; 93005; 96374; 96375; J0610; J0696; J2060; J2185; J2270; J2405; J3475; J3480; J7030; J7040

== ENCOUNTER 2018-10-17 16:53 | Emergency (ER) | payer BC ==
[~2018-10-17] VITALS: Ht 167.6 cm; Wt 50.0 kg
[~2018-10-17 16:53] MED LIST changes: -AMIO200T4 PO; +LEVO-86 PO; -LEVO50TA7 PO; -TRAZ-111 PO; +traZODone PO
[2018-10-17 17:03] VITALS: Ht 167.6 cm; Wt 50.0 kg
[2018-10-17] MEDS ORDERED: HYDR25SU23 PR (17:49)
[2018-10-17] MEDS ORDERED: ACETAMINOPHEN 325 MG TAB PO ONE (18:00)
[2018-10-17 18:10] VITALS: BP 97/59; PULSE 81; RESP 20
--- NOTE | 2018-10-17 20:13 | ERD ---
ER Documentation Chief Complaint Chief Complaint RECTAL PAIN; REFERRED BY PCP FOR RECTAL PROLAPSE HPI Patient is an 88-year-old female who presents with rectal prolapse. She has had this off and on over the past 3 weeks. She was seen by Bob today and there is a plan to see a specialist on Saturday. However the clinical care manager said that she was having pain to the patient was brought to the ER. Upon review of old medical records the patient has multiple visits to the ER for various issues. ROS All systems reviewed and are negative except as per history of present illness. Medications Home Meds Active Scripts Hydrocortisone Acetate (Anusol-Hc) 25 Mg Supp.rect, 1 SUPP SD QHS PRN for HEMORROID PAIN/ITCHING, #12 SUPP.RECT Prov:JOSE TADEO MD 10/17/18 [traZODone] 50 MG TAB No Conflict Check, 50 MG PO HS for 30 Days, #30 Prov:SHERRI ROSS MD 08/19/18 Levetiracetam* (Keppra*) 500 Mg Tablet, 500 MG PO BID for 30 Days, #60 TAB Prov:SHERRI ROSS MD 04/15/18 Reported Medications Levothyroxine Sodium (Levothroid) 100 Mcg Tablet, 100 MCG PO QAM for 90 Days, #90 08/08/18 Lisinopril* (Lisinopril*) 10 Mg Tablet, 10 MG PO DAILY, #30 TAB 09/05/17 Atorvastatin Calcium (Atorvastatin Calcium) 10 Mg Tablet, 10 MG PO QHS, #30 TAB 09/05/17 Aspirin* (Aspirin* EC) 81 Mg Tablet.dr, 81 MG PO DAILY, TAB 09/05/17 Cyanocobalamin* (Vitamin B12*) 500 Mcg Tab, 1000 MCG PO DAILY, TAB 09/05/17 Lactobacillus Acidophilus (Probiotic) 1 Each Capsule, 1 CAP PO DAILY, CAP 09/05/17 Phenytoin* (Phenytoin*) 125 Mg/5 Ml Oral.susp, 3 ML PO TID for 30 Days, BOTTLE 09/05/17 Omeprazole* (Omeprazole*) 20 Mg Capsule.dr, 20 MG PO DAILY, #30 CAP 09/05/17 Raloxifene Hcl* (Evista*) 60 Mg Tablet, 60 MG PO DAILY, TAB 09/05/17 Carvedilol* (Carvedilol*) 6.25 Mg Tablet, 6.25 MG PO BID, #60 TAB 09/05/17 Melatonin (Melatonin) 3 Mg Tablet.sa, 3 MG PO HS, TAB.SA 09/05/17 Furosemide* (Furosemide*) 20 Mg Tablet, 20 MG PO DAILY, #60 TAB 09/05/17 Allergies Allergies: Coded Allergies: No Known Drug Allergies (Verified Allergy, Mild, 04/05/18) PMhx/Soc History of Surgery: Yes (Appendectomy, tubal ligation) Anesthesia Reaction: Yes Hx Neurological Disorder: Yes (headache) Hx Respiratory Disorders: Yes (lung ca) Hx Psychiatric Problems: No Hx Miscellaneous Medical Probl: No Hx Alcohol Use: No Hx Substance Use: No Hx Tobacco Use: Yes (former smoker) Smoking Status: Current every day smoker FmHx Family History: No diabetes Physical Exam Vitals Vital Signs Date Temp Pulse Resp B/P (MAP) Pulse Ox O2 O2 Flow FiO2 Time Delivery Rate 10/17/18 81 20 97/59 (72) 95 Room Air 18:10 10/17/18 97.8 64 20 91/52 (65) 94 17:03 Physical Exam Const: No acute distress Head: Atraumatic Eyes: Normal Conjunctiva ENT: Normal External Ears, Nose and Mouth. Neck: Full range of motion. No meningismus. Resp: Clear to auscultation bilaterally Cardio: Regular rate and rhythm, no murmurs Abd: Soft, non tender, non distended. Normal bowel sounds Skin: No petechiae or rashes Back: No midline or flank tenderness Ext: No cyanosis, or edema Neur: Awake and alert Rectal: External hemorrhoids but no signs of rectal prolapse at this time. Results 24 hrs Current Medications Medications Dose Sig/Maryan Start Time Status Last (Trade) Ordered Route PRN Stop Time Admin Dose Reason Admin 650 mg ONCE ONCE 10/17/18 DC 10/17/18 Acetaminophen PO 18:00 17:56 (Tylenol 10/17/18 18:01 Tab) Procedures/MDM Patient is an 88-year-old female who presents with off-and-on rectal prolapse. The patient is taking Colace and senna at home for stool softening. There is a plan to follow-up with a specialist on Saturday. The clinical care manager brought the patient to the emergency department today because of pain. I do believe that giving a prescription for Anusol suppository would help temporize over the next few days and then the patient could be seen by specialist for definitive tr eatment. I do not believe the patient requires further work-up or admission of the hospital at this time. The patient had no rectal prolapse while in the emergency department. I spoke with Dr. Ross who agreed with this plan. Departure Diagnosis: Primary Impression: Rectal pain Additional Impression: Rectal prolapse Condition: Fair Patient Instructions: Rectal Prolapse Additional Instructions: Call your primary care doctor TOMORROW for an appointment during the next 2-3 da ys.See the doctor sooner or return here if your condition worsens before your appointment time. JOSE TADEO MD Oct 17, 2018 20:13
== END 2018-10-17 18:27 | disposition home or self-care (01) ==
LOC: E/R 16:53
DX: K62.89 Other specified diseases of anus and rectum (principal); K62.3 Rectal prolapse; Z79.82 Long term (current) use of aspirin
CPT/HCPCS: 99284

== ENCOUNTER 2018-11-30 11:45 | Inpatient (IN) | payer BC ==
[~2018-11-30] VITALS: Ht 157.5 cm; Wt 42.5 kg
[~2018-11-30 11:45] MED LIST changes: +HYDR25SU23 PR; +HYDR30CR92 PR; +LEVO100T8 PO; +METO-335 PO
[2018-11-30] MEDS ORDERED: SOD CHLORIDE 0.9% 1,000 ML IV STA (13:16)
[2018-11-30] MEDS ORDERED: INSULIN REGULAR, HUMAN 100 UNIT/1 ML 3ML VIAL IVP STA (13:52)
[2018-11-30] MEDS ORDERED: DEXTROSE 50% 50 ML SYRINGE IV STA (13:52)
[2018-11-30] MEDS ORDERED: DEXTROSE 50% 50 ML SYRINGE IV PRN (14:00)
[2018-11-30] MEDS ORDERED: CA CHLORIDE 10% 10 ML SYRINGE IV ONE (14:00)
[2018-11-30] MEDS ORDERED: CEFTRIAXONE 1 GM/50 ML (PMX) 50 ML IVPB ONE (14:00)
[2018-11-30] MEDS ORDERED: HYDROCORTISONE 25 MG SUPP PR ONE (15:30)
[2018-11-30 20:00] VITALS: BP 115/50; PULSE 58; RESP 20; Ht 157.5 cm; Wt 42.5 kg
[2018-11-30] MEDS ORDERED: HARD FAT/PHENYLEPHRINE SUPP PR SCH (21:00)
[2018-11-30] MEDS ORDERED: traZODone 50 MG TAB PO PRN (21:00)
[2018-11-30] MEDS ORDERED: HYDROCORTISONE 2.5% 30 GM RECT CR PR PRN (21:30)
[2018-11-30] MEDS: DEXTROSE 5%-0.225% NACL 1,000 ML IV SCH (22:29)
[2018-11-30] MEDS: LEVETIRACETAM 500 MG TAB PO SCH (22:29)
[2018-11-30] MEDS: HYDROCORTISONE 2.5% 30 GM RECT CR PR SCH (23:29)
[2018-11-30 23:50] VITALS: BP 105/55; PULSE 79; RESP 20
[2018-12-01] VITALS (7 sets, daily range): BP systolic 78–120; BP diastolic 40–65; PULSE 59–100; RESP 18–20
[2018-12-01] MEDS: LEVOTHYROXINE 50 MCG TAB PO SCH (06:41)
[2018-12-01] MEDS: PHENYTOIN (100 MG/4 ML) CUP PO SCH ×2 (08:37→20:23)
[2018-12-01] MEDS: LEVETIRACETAM 500 MG TAB PO SCH ×2 (08:37→20:24)
[2018-12-01] MEDS: HYDROCORTISONE 2.5% 30 GM RECT CR PR SCH ×2 (08:38→20:24)
[2018-12-01] MEDS: DEXTROSE 5%-0.225% NACL 1,000 ML IV SCH ×3 (11:27→21:05)
[2018-12-01] MEDS ORDERED: NA POLYST SULFON 15 GM/60 ML BTL PO ONE (11:30)
[2018-12-01] MEDS: CEFTRIAXONE 1 GM/50 ML (PMX) 50 ML IVPB SCH (14:52)
[2018-12-02] VITALS (7 sets, daily range): BP systolic 87–116; BP diastolic 50–62; PULSE 65–106; RESP 17–20
[2018-12-02] MEDS: LEVOTHYROXINE 50 MCG TAB PO SCH (06:38)
[2018-12-02] MEDS: DEXTROSE 5%-0.225% NACL 1,000 ML IV SCH ×2 (06:44→17:53)
[2018-12-02] MEDS: LEVETIRACETAM 500 MG TAB PO SCH ×2 (08:44→21:58)
[2018-12-02] MEDS: PHENYTOIN (100 MG/4 ML) CUP PO SCH ×2 (08:45→21:58)
[2018-12-02] MEDS: HYDROCORTISONE 2.5% 30 GM RECT CR PR SCH ×2 (08:45→21:59)
[2018-12-02] MEDS: MAGNESIUM SULFATE 2 GM/50 ML 50 ML IVPB ONE ×2 (13:33→15:05)
[2018-12-02] MEDS: CEFTRIAXONE 1 GM/50 ML (PMX) 50 ML IVPB SCH (13:38)
[2018-12-02] MEDS ORDERED: NA POLYST SULFON 15 GM/60 ML BTL PO ONE (14:00)
[2018-12-02] MEDS ORDERED: morphine 2 MG INJ IV PRN (21:00)
[2018-12-02] MEDS ORDERED: ACETAMINOPHEN 325 MG TAB PO PRN (21:00)
[2018-12-03] VITALS: BP 125/57; PULSE 82; RESP 18
[2018-12-03] MEDS: DEXTROSE 5%-0.225% NACL 1,000 ML IV SCH ×3 (03:23→21:52)
[2018-12-03 04:00] VITALS: BP 98/54; PULSE 92; RESP 18
[2018-12-03] MEDS: LEVOTHYROXINE 100 MCG TAB PO SCH (05:49)
[2018-12-03 07:43] VITALS: BP 84/48; PULSE 99; RESP 18
[2018-12-03] MEDS: HYDROCORTISONE 2.5% 30 GM RECT CR PR SCH ×2 (08:48→20:43)
[2018-12-03] MEDS: LEVETIRACETAM 500 MG TAB PO SCH ×2 (08:48→20:40)
[2018-12-03] MEDS: PHENYTOIN (100 MG/4 ML) CUP PO SCH ×2 (08:48→20:40)
[2018-12-03 11:10] VITALS: BP 118/76; PULSE 92; RESP 18
[2018-12-03] MEDS: CEFTRIAXONE 1 GM/50 ML (PMX) 50 ML IVPB SCH (13:55)
[2018-12-03 16:40] VITALS: BP 84/49; PULSE 84; RESP 18
[2018-12-03] MEDS ORDERED: FUROSEMIDE 20 MG INJ IV ONE (19:00)
[2018-12-03 20:00] VITALS: BP 90/50; PULSE 103; RESP 18
[2018-12-04] VITALS (7 sets, daily range): BP systolic 79–112; BP diastolic 52–63; PULSE 75–89; RESP 18
[2018-12-04] MEDS: LEVOTHYROXINE 100 MCG TAB PO SCH (06:36)
[2018-12-04] MEDS: LEVETIRACETAM 500 MG TAB PO SCH ×2 (08:19→20:37)
[2018-12-04] MEDS: PHENYTOIN (100 MG/4 ML) CUP PO SCH ×2 (08:19→20:37)
[2018-12-04] MEDS: HYDROCORTISONE 2.5% 30 GM RECT CR PR SCH ×2 (08:20→20:38)
[2018-12-04] MEDS: DEXTROSE 5%-0.225% NACL 1,000 ML IV SCH (11:16)
[2018-12-04] MEDS: CEFTRIAXONE 1 GM/50 ML (PMX) 50 ML IVPB SCH (13:50)
[2018-12-04] MEDS ORDERED: BALSAM PERU/CASTOR OIL 60 GM TUBE TOP SCH ×2 (14:00→21:00)
[2018-12-04] MEDS ORDERED: MAGNESIUM SULFATE 1 GM/D5W 100 ML IVPB ONE (18:30)
[2018-12-04] MEDS: BALSAM PERU/CASTOR OIL 60 GM TUBE TOP SCH (22:10)
[2018-12-05 00:12] VITALS: BP 105/56; PULSE 86
[2018-12-05] MEDS: DEXTROSE 5%-0.225% NACL 1,000 ML IV SCH ×3 (00:32→21:30)
[2018-12-05 03:39] VITALS: BP 118/58; PULSE 91; RESP 18
[2018-12-05] MEDS: LEVOTHYROXINE 100 MCG TAB PO SCH (06:03)
[2018-12-05 07:16] VITALS: BP 98/55; PULSE 81; RESP 20
[2018-12-05] MEDS: HYDROCORTISONE 2.5% 30 GM RECT CR PR SCH ×2 (09:25→21:29)
[2018-12-05] MEDS: PHENYTOIN (100 MG/4 ML) CUP PO SCH ×2 (09:25→21:29)
[2018-12-05] MEDS: LEVETIRACETAM 500 MG TAB PO SCH ×2 (09:25→21:29)
[2018-12-05] MEDS: BALSAM PERU/CASTOR OIL 60 GM TUBE TOP SCH ×2 (09:26→21:29)
[2018-12-05 10:54] VITALS: BP 100/56; PULSE 85; RESP 18
[2018-12-05] MEDS ORDERED: MAGNESIUM CITRATE 300 ML BTL PO ONE (15:00)
[2018-12-05 15:12] VITALS: BP 117/67; PULSE 84; RESP 18
[2018-12-05] MEDS: CEFTRIAXONE 1 GM/50 ML (PMX) 50 ML IVPB SCH (15:49)
[2018-12-05 19:30] VITALS: BP 86/57; PULSE 62; RESP 18
[2018-12-06] VITALS (7 sets, daily range): BP systolic 108–126; BP diastolic 56–61; PULSE 69–97; RESP 18
[2018-12-06] MEDS: LEVOTHYROXINE 100 MCG TAB PO SCH (05:58)
[2018-12-06] MEDS: LEVETIRACETAM 500 MG TAB PO SCH ×2 (08:52→20:42)
[2018-12-06] MEDS: BALSAM PERU/CASTOR OIL 60 GM TUBE TOP SCH ×2 (08:52→20:43)
[2018-12-06] MEDS: HYDROCORTISONE 2.5% 30 GM RECT CR PR SCH ×2 (08:53→20:42)
[2018-12-06] MEDS: PHENYTOIN (100 MG/4 ML) CUP PO SCH ×2 (08:54→20:42)
[2018-12-06] MEDS: CEFTRIAXONE 1 GM/50 ML (PMX) 50 ML IVPB SCH (14:41)
[2018-12-06] MEDS: DEXTROSE 5%-0.225% NACL 1,000 ML IV SCH (17:44)
[2018-12-07 03:23] VITALS: BP 116/59; PULSE 83; RESP 18
[2018-12-07] MEDS: LEVOTHYROXINE 100 MCG TAB PO SCH (06:39)
[2018-12-07] MEDS: DEXTROSE 5%-0.225% NACL 1,000 ML IV SCH ×2 (06:42→21:43)
[2018-12-07 07:17] VITALS: BP 123/58; PULSE 84; RESP 18
[2018-12-07] MEDS: PHENYTOIN (100 MG/4 ML) CUP PO SCH ×2 (09:11→21:43)
[2018-12-07] MEDS: LEVETIRACETAM 500 MG TAB PO SCH ×2 (09:11→21:43)
[2018-12-07] MEDS: HYDROCORTISONE 2.5% 30 GM RECT CR PR SCH ×2 (09:12→21:44)
[2018-12-07] MEDS: BALSAM PERU/CASTOR OIL 60 GM TUBE TOP SCH ×2 (09:13→21:45)
[2018-12-07 11:24] VITALS: BP 102/52; PULSE 82; RESP 19
[2018-12-07] MEDS: CEFTRIAXONE 1 GM/50 ML (PMX) 50 ML IVPB SCH (13:37)
[2018-12-07 15:22] VITALS: BP 119/58; PULSE 104; RESP 19
[2018-12-07] MEDS: METOPROLOL (XL) 25 MG TAB PO SCH (15:55)
[2018-12-07 20:00] VITALS: BP 106/58; PULSE 86; RESP 19
[2018-12-08] VITALS: BP 103/53; PULSE 78; RESP 18
[2018-12-08 04:00] VITALS: BP 109/57; PULSE 80; RESP 19
[2018-12-08] MEDS: LEVOTHYROXINE 100 MCG TAB PO SCH (05:39)
[2018-12-08 07:11] VITALS: BP 109/57; PULSE 82; RESP 18
[2018-12-08] MEDS: PHENYTOIN (100 MG/4 ML) CUP PO SCH ×2 (08:43→21:15)
[2018-12-08] MEDS: BALSAM PERU/CASTOR OIL 60 GM TUBE TOP SCH ×2 (08:45→21:15)
[2018-12-08] MEDS: HYDROCORTISONE 2.5% 30 GM RECT CR PR SCH ×2 (08:45→21:16)
[2018-12-08] MEDS: METOPROLOL (XL) 25 MG TAB PO SCH (08:45)
[2018-12-08] MEDS: LEVETIRACETAM 500 MG TAB PO SCH ×2 (08:45→21:14)
[2018-12-08] MEDS: DEXTROSE 5%-0.225% NACL 1,000 ML IV SCH ×2 (10:34→22:50)
[2018-12-08 11:01] VITALS: BP 121/57; PULSE 77; RESP 18
[2018-12-08] MEDS: CEFTRIAXONE 1 GM/50 ML (PMX) 50 ML IVPB SCH (13:11)
[2018-12-08 15:29] VITALS: BP 120/60; PULSE 80; RESP 19
[2018-12-08 20:00] VITALS: BP 138/61; PULSE 64; RESP 19
[2018-12-09] VITALS: BP 109/59; PULSE 91; RESP 18
[2018-12-09 04:00] VITALS: BP 114/71; PULSE 84; RESP 19
[2018-12-09] MEDS: DEXTROSE 5%-0.225% NACL 1,000 ML IV SCH (05:29)
[2018-12-09] MEDS: LEVOTHYROXINE 100 MCG TAB PO SCH (06:21)
[2018-12-09 07:15] VITALS: BP 111/63; PULSE 61; RESP 20
[2018-12-09] MEDS: PHENYTOIN (100 MG/4 ML) CUP PO SCH ×2 (09:25→21:49)
[2018-12-09] MEDS: METOPROLOL (XL) 25 MG TAB PO SCH (09:26)
[2018-12-09] MEDS: LEVETIRACETAM 500 MG TAB PO SCH ×2 (09:26→20:45)
[2018-12-09] MEDS: BALSAM PERU/CASTOR OIL 60 GM TUBE TOP SCH ×2 (09:30→21:50)
[2018-12-09] MEDS: HYDROCORTISONE 2.5% 30 GM RECT CR PR SCH ×2 (09:30→21:50)
[2018-12-09 11:04] VITALS: BP 114/55; PULSE 88; RESP 20
[2018-12-09] MEDS: CEFTRIAXONE 1 GM/50 ML (PMX) 50 ML IVPB SCH (14:35)
[2018-12-09 15:42] VITALS: BP 113/55; PULSE 80; RESP 20
[2018-12-09 19:38] VITALS: BP 138/74; RESP 20
[2018-12-10] VITALS: BP 101/59; PULSE 97; RESP 18
[2018-12-10 03:59] VITALS: BP 122/71; PULSE 108; RESP 20
[2018-12-10] MEDS: LEVOTHYROXINE 100 MCG TAB PO SCH (06:08)
[2018-12-10 07:14] VITALS: BP 95/59; PULSE 58; RESP 20
[2018-12-10] MEDS: PHENYTOIN (100 MG/4 ML) CUP PO SCH ×2 (08:21→20:45)
[2018-12-10] MEDS: LEVETIRACETAM 500 MG TAB PO SCH ×2 (08:21→20:46)
[2018-12-10] MEDS: HYDROCORTISONE 2.5% 30 GM RECT CR PR SCH ×2 (08:22→20:47)
[2018-12-10] MEDS: METOPROLOL (XL) 25 MG TAB PO SCH (08:22)
[2018-12-10] MEDS: BALSAM PERU/CASTOR OIL 60 GM TUBE TOP SCH ×2 (08:22→20:46)
[2018-12-10 11:37] VITALS: BP 106/56; PULSE 56; RESP 20
[2018-12-10] MEDS: CEFTRIAXONE 1 GM/50 ML (PMX) 50 ML IVPB SCH (13:37)
[2018-12-10 15:10] VITALS: BP 118/69; PULSE 78; RESP 20
[2018-12-10 20:00] VITALS: BP 110/61; PULSE 92; RESP 18
[2018-12-11] VITALS (7 sets, daily range): BP systolic 95–127; BP diastolic 51–60; PULSE 81–124; RESP 17–20
[2018-12-11] MEDS: LEVOTHYROXINE 100 MCG TAB PO SCH (06:40)
[2018-12-11] MEDS: METOPROLOL (XL) 25 MG TAB PO SCH (09:00)
[2018-12-11] MEDS: LEVETIRACETAM 500 MG TAB PO SCH ×2 (09:24→21:45)
[2018-12-11] MEDS: PHENYTOIN (100 MG/4 ML) CUP PO SCH ×2 (09:24→21:44)
[2018-12-11] MEDS: BALSAM PERU/CASTOR OIL 60 GM TUBE TOP SCH ×2 (09:25→21:45)
[2018-12-11] MEDS: HYDROCORTISONE 2.5% 30 GM RECT CR PR SCH ×2 (09:27→21:45)
[2018-12-11] MEDS ORDERED: VANCOMYCIN 1 GM (PMX) 250 ML IVPB ONE (14:00)
[2018-12-12] VITALS: BP 125/55; PULSE 61; RESP 20
[2018-12-12 04:00] VITALS: BP 101/64; PULSE 101; RESP 18
[2018-12-12] MEDS: LEVOTHYROXINE 100 MCG TAB PO SCH (05:42)
[2018-12-12 07:50] VITALS: BP 112/56; PULSE 96; RESP 18
[2018-12-12] MEDS: PHENYTOIN (100 MG/4 ML) CUP PO SCH ×2 (09:27→21:09)
[2018-12-12] MEDS: LEVETIRACETAM 500 MG TAB PO SCH ×2 (09:27→21:09)
[2018-12-12] MEDS: MUPIROCIN 2% 22 GM OINT TOP SCH (09:28)
[2018-12-12] MEDS: HYDROCORTISONE 2.5% 30 GM RECT CR PR SCH ×2 (09:28→21:10)
[2018-12-12] MEDS: METOPROLOL (XL) 25 MG TAB PO SCH (09:28)
[2018-12-12] MEDS: BALSAM PERU/CASTOR OIL 60 GM TUBE TOP SCH ×2 (09:29→21:11)
[2018-12-12 11:27] VITALS: BP 109/62; PULSE 79; RESP 18
[2018-12-12 15:14] VITALS: BP 107/53; PULSE 61; RESP 18
[2018-12-12] MEDS: CEFAZOLIN 1 GM/50 ML (PMX) 50 ML IVPB SCH ×2 (16:02→21:09)
[2018-12-12 19:45] VITALS: BP 116/58; PULSE 45; RESP 18
[2018-12-13] VITALS (7 sets, daily range): BP systolic 91–110; BP diastolic 51–61; PULSE 46–97; RESP 18–20
[2018-12-13] MEDS: LEVOTHYROXINE 100 MCG TAB PO SCH (06:33)
[2018-12-13] MEDS: METOPROLOL (XL) 25 MG TAB PO SCH (08:02)
[2018-12-13] MEDS: CEFAZOLIN 1 GM/50 ML (PMX) 50 ML IVPB SCH ×2 (08:02→20:47)
[2018-12-13] MEDS: LEVETIRACETAM 500 MG TAB PO SCH ×2 (08:02→20:47)
[2018-12-13] MEDS: MUPIROCIN 2% 22 GM OINT TOP SCH (08:02)
[2018-12-13] MEDS: PHENYTOIN (100 MG/4 ML) CUP PO SCH ×2 (08:02→20:47)
[2018-12-13] MEDS: HYDROCORTISONE 2.5% 30 GM RECT CR PR SCH ×2 (08:03→20:48)
[2018-12-13] MEDS: BALSAM PERU/CASTOR OIL 60 GM TUBE TOP SCH ×2 (08:04→20:48)
[2018-12-14] VITALS (7 sets, daily range): BP systolic 91–106; BP diastolic 53–62; PULSE 56–113; RESP 16–20
[2018-12-14] MEDS: LEVOTHYROXINE 100 MCG TAB PO SCH (06:16)
[2018-12-14] MEDS: LEVETIRACETAM 500 MG TAB PO SCH ×2 (07:25→20:15)
[2018-12-14] MEDS: METOPROLOL (XL) 25 MG TAB PO SCH (07:25)
[2018-12-14] MEDS: PHENYTOIN (100 MG/4 ML) CUP PO SCH ×2 (07:25→20:15)
[2018-12-14] MEDS: MUPIROCIN 2% 22 GM OINT TOP SCH (07:26)
[2018-12-14] MEDS: CEFAZOLIN 1 GM/50 ML (PMX) 50 ML IVPB SCH ×2 (07:26→20:15)
[2018-12-14] MEDS: BALSAM PERU/CASTOR OIL 60 GM TUBE TOP SCH ×2 (07:27→20:17)
[2018-12-14] MEDS: HYDROCORTISONE 2.5% 30 GM RECT CR PR SCH ×2 (07:27→20:16)
[2018-12-15] VITALS: BP 130/63; PULSE 85; RESP 16
[2018-12-15 04:03] VITALS: BP 117/59; PULSE 82; RESP 16
[2018-12-15] MEDS: LEVOTHYROXINE 100 MCG TAB PO SCH (06:22)
[2018-12-15 07:43] VITALS: BP 118/61; PULSE 68; RESP 19
[2018-12-15] MEDS: LEVETIRACETAM 500 MG TAB PO SCH (08:13)
[2018-12-15] MEDS: CEFAZOLIN 1 GM/50 ML (PMX) 50 ML IVPB SCH (08:13)
[2018-12-15] MEDS: MUPIROCIN 2% 22 GM OINT TOP SCH (08:14)
[2018-12-15] MEDS: HYDROCORTISONE 2.5% 30 GM RECT CR PR SCH (08:14)
[2018-12-15] MEDS: PHENYTOIN (100 MG/4 ML) CUP PO SCH (08:14)
[2018-12-15] MEDS: BALSAM PERU/CASTOR OIL 60 GM TUBE TOP SCH (08:14)
[2018-12-15] MEDS: METOPROLOL (XL) 25 MG TAB PO SCH (08:14)
[2018-12-15 11:16] VITALS: BP 93/51; PULSE 91; RESP 19
[2018-12-15] MEDS ORDERED: VANCOMYCIN 1 GM (PMX) 250 ML IVPB ONE (14:00)
[2018-12-15 15:24] VITALS: BP 122/63; PULSE 99; RESP 19
== END 2018-12-15 18:32 | disposition home or self-care (01) | DRG 683 ==
LOC: E/R 11:45 → TEL 14:16
PROVIDERS: ADMIT Internal Medicine; ATTEND Internal Medicine
PROC: 30233N1 Transfusion of Nonautologous Red Blood Cells into Peripheral Vein, Percutaneous Approach (ICD-10-PCS; principal; 2018-12-03)
DX: N17.9 Acute kidney failure, unspecified (principal); N39.0 Urinary tract infection, site not specified; G93.40 Encephalopathy, unspecified; I42.9 Cardiomyopathy, unspecified; C79.51 Secondary malignant neoplasm of bone; C79.89 Secondary malignant neoplasm of other specified sites; E86.0 Dehydration; K62.3 Rectal prolapse; E87.5 Hyperkalemia; I25.10 Atherosclerotic heart disease of native coronary artery without angina pectoris; Z98.61 Coronary angioplasty status; Z95.810 Presence of automatic (implantable) cardiac defibrillator; E03.9 Hypothyroidism, unspecified; H54.8 Legal blindness, as defined in USA; I73.9 Peripheral vascular disease, unspecified; G40.909 Epilepsy, unspecified, not intractable, without status epilepticus; I11.0 Hypertensive heart disease with heart failure; I50.9 Heart failure, unspecified; Z87.891 Personal history of nicotine dependence; E83.42 Hypomagnesemia; Z85.118 Personal history of other malignant neoplasm of bronchus and lung; Z86.011 Personal history of benign neoplasm of the brain; L03.031 Cellulitis of right toe; L97.519 Non-pressure chronic ulcer of other part of right foot with unspecified severity; I44.0 Atrioventricular block, first degree; I25.2 Old myocardial infarction
CPT/HCPCS: 36415; 36430; 71045; 71250; 73620; 80048; 80053; 80185; 81001; 82270; 82728; 82962; 83540; 83605; 83690; 83735; 84436; 84443; 84484; 84560; 85025; 85335; 85610; 85730; 86850; 86900; 86901; 86920; 87086; 93005; J0690; J0696; J1815; J1940; J2270; J3370; J3475; J7030; P9016